=== PATIENT | female | born 1950 | race American Indian/Alaskan Native ===

== ENCOUNTER 2016-08-06 12:05 | Emergency (ER) | payer MEDICARE, MEDICAID ==
--- NOTE | 2016-08-06 12:07 | EDM.PDOC ---
ED HPI GENERAL MEDICAL PROBLEM - General Chief Complaint: Lower Extremity Injury/Pain Stated Complaint: [id number] LEG SWOLLEN CRAMPED BRUISED Time Seen by Provider: 08/06/16 12:15 Source of Information: Reports: Patient, RN, RN Notes Reviewed History Limitations: Reports: No Limitations - History of Present Illness INITIAL COMMENTS - FREE TEXT/NARRATIVE: Sudden onset of right medial and posterior lower leg pain at 4 a.m. Sunday morning August 04 when she woke on the the right lower leg had a huge bruise and was very painful. Denies injury, cough or shortness of breath. Quality: Reports: Ache Severity: Severe Improves with: Reports: None Worsens with: Reports: None Associated Symptoms: Reports: No Other Symptoms Right Leg Pain Score (Numeric/FACES): 6 - Related Data Allergies Allergy/AdvReac Type Severity Reaction Status Date / Time No Known Allergies Allergy Verified 08/06/16 12:20 Home Meds: Home Meds Aspirin [Low Dose Aspirin EC] 81 mg PO DAILY 05/25/13 [History] metFORMIN [Glucophage] 1,000 mg PO BID 05/25/13 [History] Past Medical History Other HEENT History: weasrs glasses Other Gastrointestinal History: has a abdominal hernia Endocrine/Metabolic History: Reports: Diabetes, Type II - Past Surgical History GI Surgical History: Reports: Cholecystectomy Social & Family History - Family History Family Medical History: Noncontributory - Tobacco Use Smoking Status *Q: Never Smoker Second Hand Smoke Exposure: No - Caffeine Use Caffeine Use: Reports: Coffee - Alcohol Use Days Per Week of Alcohol Use: 0 - Recreational Drug Use Recreational Drug Use: No - Living Situation & Occupation Living situation: Reports: with Family Review of Systems - Review of Systems Review Of Systems: ROS reveals no pertinent complaints other than HPI. ED EXAM, GENERAL - Physical Exam Exam: See Below Exam Limited By: No Limitations General Appearance: Alert, WD/WN, No Apparent Distress Respiratory/Chest: No Respiratory Distress Cardiovascular: Normal Peripheral Pulses, Regular Rate, Rhythm, No Edema, No Gallop, No JVD, No Murmur, No Rub Back Exam: Normal Inspection, Full Range of Motion, NT Extremities: Other (Right medial lower leg with large hematoma from just distal to the knee to the lw calf with mild swelling. Positive Sameera's right.) Neurological: Alert, Oriented, CN II-XII Intact, Normal Cognition, Normal Gait, Normal Reflexes, No Motor/Sensory Deficits Psychiatric: Normal Affect, Normal Mood Lymphatic: No Adenopathy Course - Vital Signs Last Recorded V/S: Last Vital Signs Temp 36.2 C 08/06/16 12:10 Pulse 77 08/06/16 12:10 Resp 16 08/06/16 12:10 BP 139/60 08/06/16 12:10 Pulse Ox 100 08/06/16 12:10 - Orders/Labs/Meds Orders: Active Orders 24 hr Category Date Time Status Venous Doppler Lwr Ext Rt [US] Urgent Exams 08/06/16 12:29 Taken Meds: Medications Discontinued Medications Generic Name Dose Route Start Last Admin Trade Name Freq PRN Reason Stop Dose Admin Hydrocodone Bitart/Acetaminophen 1 tab 08/06/16 12:32 08/06/16 12:41 [place] 325-10 Mg PO 08/06/16 12:33 1 tab ONETIME ONE Administration - Radiology Interpretation Free Text/Narrative:: Ultrasound extremity veins: Per rad report normal right lower extremity duplex venous ultrasound. Departure - Departure Time of Disposition: 13:42 Disposition: Home, Self-Care 01 Condition: good Clinical Impression: Ruptured varicose vein Hematoma of right lower extremity Qualifiers: Encounter type: initial encounter Qualified Code(s): S80.11XA - Contusion of right lower leg, initial encounter - Discharge Information Instructions: Hematoma, [id number] Forms: ED Department Discharge Additional Instructions: RX: Naprosyn 500mg. RX: [place] 5mg/325mg. Use heating pad to the right leg as needed. Activity as tolerated. Follow up in clinic in one week if not improving. - My Orders Last 24 Hours: My Active Orders 08/06/16 12:29 Venous Doppler Lwr Ext Rt [US] Urgent - Assessment/Plan Last 24 Hours: My Active Orders 08/06/16 12:29 Venous Doppler Lwr Ext Rt [US] Urgent
[2016-08-06] MEDS ORDERED: Acetaminophen/HYDROcodone 325-10 MG Tab PO ONE (12:32)
[2016-08-06 13:47] VITALS: BP 120/48
== END 2016-08-06 13:57 | disposition home or self-care (01) ==
LOC: EDBD 12:05 → DL.ED 12:05
DX: S80.11XA Contusion of right lower leg, initial encounter (principal); I83.90 Asymptomatic varicose veins of unspecified lower extremity; Z90.49 Acquired absence of other specified parts of digestive tract; Z79.82 Long term (current) use of aspirin; E11.9 Type 2 diabetes mellitus without complications; Z79.84 Long term (current) use of oral hypoglycemic drugs
CPT/HCPCS: 93971; 99283; A9270

== ENCOUNTER 2016-08-29 09:33 | Emergency (ER) | payer MEDICARE, MEDICAID ==
[2016-08-29 09:40] VITALS: BP 145/71
[2016-08-29] MEDS ORDERED: Dexamethasone 4 MG/ML SDV IM ONE (10:00)
[2016-08-29] MEDS ORDERED: Meclizine 12.5 MG Tab PO ONE ×2 (10:01→10:21)
[2016-08-29] MEDS ORDERED: Ondansetron 4 MG Tab.DIS PO ONE (10:02)
[2016-08-29] MEDS ORDERED: Meclizine 12.5 MG Tab ONE (10:21)
--- NOTE | 2016-08-29 10:42 | EDM.PDOC ---
Scribed by Nilsa Martinez 08/29/16 1013 for Brennon Tirado MD ED HPI GENERAL MEDICAL PROBLEM - General Chief Complaint: Headache Stated Complaint: DIZZY, HEADACHE Time Seen by Provider: 08/29/16 09:52 Source of Information: Reports: Patient, RN, RN Notes Reviewed History Limitations: Reports: No Limitations - History of Present Illness INITIAL COMMENTS - FREE TEXT/NARRATIVE: Complaining of onset of frontal headache yesterday followed by "room spin dizziness" associated with nausea. Denies fever, chills, vomiting or visual changes. Admits to allergies with runny nose x1 week. Location: Reports: Head Quality: Reports: Ache Severity: Moderate Improves with: Reports: None Worsens with: Reports: None Associated Symptoms: Reports: No Other Symptoms - Related Data Allergies Allergy/AdvReac Type Severity Reaction Status Date / Time No Known Allergies Allergy Verified 08/29/16 09:36 Home Meds: Home Meds Aspirin [Low Dose Aspirin EC] 81 mg PO DAILY 05/25/13 [History] metFORMIN [Glucophage] 1,000 mg PO BID 05/25/13 [History] Past Medical History Other HEENT History: weasrs glasses Other Gastrointestinal History: has a abdominal hernia Endocrine/Metabolic History: Reports: Diabetes, Type II - Past Surgical History GI Surgical History: Reports: Cholecystectomy Social & Family History - Family History Family Medical History: Noncontributory - Tobacco Use Smoking Status *Q: Never Smoker Second Hand Smoke Exposure: No - Caffeine Use Caffeine Use: Reports: Coffee - Alcohol Use Days Per Week of Alcohol Use: 0 - Recreational Drug Use Recreational Drug Use: No - Living Situation & Occupation Living situation: Reports: with Family ED ROS GENERAL - Review of Systems Review Of Systems: ROS reveals no pertinent complaints other than HPI. - Physical Exam Exam: See Below Exam Limited By: No Limitations General Appearance: Alert, WD/WN, No Apparent Distress Eye Exam: Bilateral Eye: Nystagmus (lateral gaze nystagmus.) Ears: Normal TMs (bilateral) Nose: Other (inflamed nasal mucosa with clear nasal mucus drainage. ) Throat/Mouth: Normal Inspection, Normal Lips, Normal Teeth, Normal Gums, Normal Oropharynx, Normal Voice, No Airway Compromise Head Exam: Atraumatic, Normocephalic Neck: Normal Inspection, Supple, Non-Tender, Full Range of Motion Respiratory/Chest: No Respiratory Distress, Lungs Clear, Normal Breath Sounds, No Accessory Muscle Use, Chest Non-Tender Cardiovascular: Normal Peripheral Pulses, Regular Rate, Rhythm, No Edema, No Gallop, No JVD, No Murmur, No Rub GI/Abdominal: Normal Bowel Sounds, Soft, Non-Tender, No Organomegaly, No Distention, No Abnormal Bruit, No Mass (Female) Exam: Deferred Rectal (Female) Exam: Deferred Neuro Exam (Abbreviated): Alert, Oriented, CN II-XII Intact, Normal Cognition, Normal Gait, Normal Reflexes, No Motor/Sensory Deficits Back Exam: Normal Inspection, Full Range of Motion, NT Extremities: Normal Inspection, Normal Range of Motion, Non-Tender, No Pedal Edema, Normal Capillary Refill Psychiatric: Normal Affect, Normal Mood Skin Exam: Warm, Dry, Intact, Normal Color, No Rash Course - Vital Signs Last Recorded V/S: Last Vital Signs Temp 36.4 C 08/29/16 09:37 Pulse 75 08/29/16 09:37 Resp 16 08/29/16 09:37 BP 145/71 H 08/29/16 09:37 Pulse Ox 100 08/29/16 09:37 - Orders/Labs/Meds Meds: Medications Discontinued Medications Generic Name Dose Route Start Last Admin Trade Name Obeyq PRN Reason Stop Dose Admin Dexamethasone 8 mg 08/29/16 10:00 08/29/16 10:07 Dexamethasone IM 08/29/16 10:01 8 mg ONETIME ONE Administration Meclizine HCl 25 mg 08/29/16 10:01 08/29/16 10:07 Antivert PO 08/29/16 10:02 25 mg ONETIME ONE Administration Meclizine HCl Confirm 08/29/16 10:21 08/29/16 10:27 Antivert Administered 08/29/16 10:22 Not Given Dose 50 mg .ROUTE .STK-MED ONE Ondansetron HCl 4 mg 08/29/16 10:02 08/29/16 10:07 Zofran Odt PO 08/29/16 10:03 4 mg ONETIME ONE Administration Departure - Departure Time of Disposition: 10:03 Disposition: Home, Self-Care 01 Condition: Good Clinical Impression: Sinus headache, Allergic rhinosinusitis, Vertigo - Discharge Information Instructions: Sinus Headache, [id number], Vertigo, [id number] Forms: ED Department Discharge Additional Instructions: RX: Meclizine 25mg. *no driving while under the influence of this medication. RX: Decadron 4 mg. Follow up in clinic in 2-3 days for recheck if not improved. I have read and agree with the documentation that has been completed regarding this visit. By signing this record, I attest that the documentation was completed in my physical presence and is an accurate record of the encounter.
== END 2016-08-29 10:23 | disposition home or self-care (01) ==
LOC: DL.ED 09:33
DX: R51 Headache (principal); J30.9 Allergic rhinitis, unspecified; R42 Dizziness and giddiness; E11.9 Type 2 diabetes mellitus without complications; Z79.82 Long term (current) use of aspirin; Z79.84 Long term (current) use of oral hypoglycemic drugs; Z90.49 Acquired absence of other specified parts of digestive tract
CPT/HCPCS: 96372; 99283; A9270; J1100

== ENCOUNTER 2017-02-18 06:34 | Emergency (ER) | payer MEDICARE, MEDICAID ==
[2017-02-18] MEDS ORDERED: Sodium Chloride 0.9% 1,000 ML IV ONE (06:45)
[2017-02-18] MEDS ORDERED: Promethazine 25 MG/ML SDV IM ONE (06:45)
[2017-02-18] MEDS ORDERED: Meclizine 12.5 MG Tab PO ONE (06:46)
--- NOTE | 2017-02-18 06:52 | EDM.PDOC ---
<Juan Tapia - Last Filed: 02/18/17 06:47> ED HPI GENERAL MEDICAL PROBLEM - General Chief Complaint: General Stated Complaint: Dizziness Time Seen by Provider: 02/18/17 06:47 Source of Information: Reports: Patient History Limitations: Reports: No Limitations - History of Present Illness INITIAL COMMENTS - FREE TEXT/NARRATIVE: woke up felt dizzy unable to get to bathroom. vomited x 3. no diarrhoea, no chest pain, but abd pain from umbilical hernia. - Related Data Allergies Allergy/AdvReac Type Severity Reaction Status Date / Time No Known Allergies Allergy Verified 02/18/17 07:01 Home Meds: Home Meds Aspirin [Low Dose Aspirin EC] 81 mg PO DAILY 05/25/13 [History] metFORMIN [Glucophage] 1,000 mg PO BID 05/25/13 [History] Meclizine HCl 25 mg PO Q8H PRN 02/18/17 [History] Simvastatin 1 tab PO DAILY 02/18/17 [History] Tylenol 1 tab PO ASDIRECTED PRN 02/18/17 [History] Past Medical History HEENT History: Reports: Impaired Vision Other HEENT History: weasrs glasses Other Gastrointestinal History: has a abdominal hernia Endocrine/Metabolic History: Reports: Diabetes, Type II - Past Surgical History GI Surgical History: Reports: Cholecystectomy Social & Family History - Family History Family Medical History: Noncontributory - Tobacco Use Smoking Status *Q: Never Smoker Second Hand Smoke Exposure: No - Caffeine Use Caffeine Use: Reports: Coffee - Alcohol Use Days Per Week of Alcohol Use: 0 - Recreational Drug Use Recreational Drug Use: No - Living Situation & Occupation Living situation: Reports: with Family ED ROS GENERAL - Review of Systems Review Of Systems: ROS reveals no pertinent complaints other than HPI. ED EXAM, DIZZINESS - Physical Exam Exam: See Below Exam Limited By: No Limitations General Appearance: Alert, WD/WN, Mild Distress, Other (dizzy) Ears: Hearing Grossly Normal Throat/Mouth: Normal Voice, No Airway Compromise Head Exam: Atraumatic Vertigo: short duration Neck: Non-Tender, Full Range of Motion Respiratory/Chest: No Respiratory Distress Cardiovascular: Regular Rate, Rhythm GI/Abdominal: Soft, Other (umbil hernia) Neurological: Alert, No Motor/Sensory Deficits, Oriented x 3, Other (gait limited to dizziness) Psychiatric: Anxious Skin Exam: Warm, Dry, Normal Color Course - Vital Signs Last Recorded V/S: Last Vital Signs Temp 36.1 C 02/18/17 06:55 Pulse 78 02/18/17 06:55 Resp 24 H 02/18/17 06:55 BP 145/58 H 02/18/17 06:55 Pulse Ox 100 02/18/17 06:55 - Orders/Labs/Meds Orders: Active Orders 24 hr Category Date Time Status EKG 12 Lead [EKG Documentation Completion] [RC] STAT Care 02/18/17 06:44 Active Sodium Chloride 0.9% [Normal Saline] 1,000 ml Med 02/18/17 06:45 Active IV .BOLUS Medication Orders Sodium Chloride (Normal Saline) 1,000 mls @ 500 mls/hr IV .BOLUS ONE Stop: 02/18/17 08:44 Last Admin: 02/18/17 07:00 Dose: 500 mls/hr Labs: Laboratory Tests 02/18/17 02/18/17 Range/Units 06:43 06:43 WBC 6.4 (5.0-10.0) 10^3/uL RBC 4.49 (4.2-5.4) 10^6/uL Hgb 13.5 (12.0-16.0) g/dL Hct 40.6 (37.0-47.0) % MCV 90.4 (80-100) fL MCH 30.1 (27.0-34.0) pg MCHC 33.3 (33.0-35.0) g/dL Plt Count 210 (150-450) 10^3/uL Neut % (Auto) 56.8 (42.2-75.2) % Lymph % (Auto) 31.4 (20.5-50.1) % [place] % (Auto) 6.4 (2-8) % Eos % (Auto) 5.1 H (1.0-3.0) % Baso % (Auto) 0.3 (0.0-1.0) % Sodium 140 (135-145) mmol/L Potassium 3.8 (3.6-5.0) mmol/L Chloride 110 (101-111) mmol/L Carbon Dioxide 20.0 L (21.0-31.0) mmol/L Anion Gap 13.8 BUN 17 (7-18) mg/dL Creatinine 0.6 (0.6-1.3) mg/dL Est Cr Clr Drug Dosing TNP Estimated GFR (MDRD) > 60 BUN/Creatinine Ratio 28.33 Glucose 206 H (74-105) mg/dL Calcium 9.3 (8.4-10.2) mg/dl Total Bilirubin 1.0 (0.2-1.0) mg/dL AST 33 (10-42) IU/L ALT 19 (10-60) IU/L Alkaline Phosphatase 59 (42-121) IU/L Troponin I < 0.02 (0.00-0.02) ng/ml Total Protein 7.7 (6.7-8.2) g/dl Albumin 4.2 (3.2-5.5) g/dl Globulin 3.5 Albumin/Globulin Ratio 1.20 Meds: Medications Generic Name Dose Route Start Last Admin Trade Name Freq PRN Reason Stop Dose Admin Sodium Chloride 1,000 mls @ 500 mls/hr 02/18/17 06:45 02/18/17 07:00 Normal Saline IV 02/18/17 08:44 500 mls/hr .BOLUS ONE Administration Discontinued Medications Generic Name Dose Route Start Last Admin Trade Name Freq PRN Reason Stop Dose Admin Meclizine HCl 12.5 mg 02/18/17 06:46 02/18/17 06:56 Antivert PO 02/18/17 06:47 12.5 mg ONETIME ONE Administration Promethazine HCl 25 mg 02/18/17 06:45 02/18/17 07:00 Phenergan IM 02/18/17 06:46 25 mg ONETIME ONE Administration Departure - Departure Disposition: Home, Self-Care 01 Clinical Impression: Vertigo - Discharge Information Instructions: Vertigo, [id number] Forms: ED Department Discharge Additional Instructions: Take your Meclizine as prescribed. Follow up in clinic if not completely improved in 2 to 3 days. Return to ER if worse at any time. <Brennon Tirado - Last Filed: 02/18/17 08:24> ED HPI GENERAL MEDICAL PROBLEM - General Source of Information: Reports: Old Records, RN, RN Notes Reviewed - History of Present Illness INITIAL COMMENTS - FREE TEXT/NARRATIVE: Pt reports waking to find that she had "room spin dizziness" with nausea and vomiting x3. She had at least one very similar episode about a year ago and was diagnosed with vertigo. Denies fever, chills, headache, visual changes, slurred speech, difficulty swallowing, facial droop, numbness, tingling, or lateralizing neuro. symptoms. Onset: Today Duration: Constant Improves with: Reports: None Worsens with: Reports: Movement Associated Symptoms: Reports: No Other Symptoms Past Medical History Neurological History: Reports: Vertigo ED EXAM, DIZZINESS - Physical Exam General Appearance: No Apparent Distress Eye Exam: Bilateral Eye: EOMI, Nystagmus (lateral gaze), PERRL Nystagmus: reproducible, reversible Ears: Normal External Exam, Normal Canal, Normal TMs Nose: Normal Inspection, Normal Mucosa, No Blood Throat/Mouth: Normal Inspection, Normal Lips, Normal Teeth, Normal Gums, Normal Oropharynx, Normal Voice, No Airway Compromise Head Exam: Atraumatic, Normocephalic Vertigo: reproducible, reversible Neck: Normal Inspection, Supple, Non-Tender, Full Range of Motion. No: Lymphadenopathy (L), Lymphadenopathy (R) Respiratory/Chest: No Respiratory Distress, Lungs Clear, Normal Breath Sounds, No Accessory Muscle Use, Chest Non-Tender Cardiovascular: Normal Peripheral Pulses, Regular Rate, Rhythm, No Edema, No Gallop, No JVD, No Murmur, No Rub GI/Abdominal: Normal Bowel Sounds, Soft, Non-Tender, No Organomegaly, No Distention, No Abnormal Bruit, No Mass Neurological: Alert, Normal Mood/Affect, Normal Dorsiflexion, CN II-XII Intact, Normal Plantar Flexion, Normal Gait, No Motor/Sensory Deficits, Oriented x 3 Back Exam: Normal Inspection Extremities: Normal Inspection Skin Exam: Warm, Dry, Intact, Normal Color, No Rash EKG INTERPRETATION EKG Date: 02/18/17 Time: 06:50 Rhythm: NSR Rate (Beats/Min): 76 [place]: Normal P-Wave: Present QRS: Normal ST-T: Normal QT: Normal Comparison: No Change EKG Interpretation Comments: No acute ischemic changes. Departure - Departure Time of Disposition: 08:22 Condition: Good
[2017-02-18 07:00] VITALS: BP 145/58
[2017-02-18 07:11] LABS: CHLORIDE,CL 110 mmol/L (101-111); SODIUM,NA 140 mmol/L (135-145)
--- NOTE | 2017-02-26 18:34 | EKG ---
02/18/2017 - EMMY GODWIN - This 12-lead EKG shows normal sinus rhythm with a ventricular rate of 76. Normal axis and intervals. No acute ST-T wave changes. [facility] /[id number]
== END 2017-02-18 08:40 | disposition home or self-care (01) ==
LOC: DL.ED 06:34
DX: R42 Dizziness and giddiness (principal); E11.9 Type 2 diabetes mellitus without complications; Z79.82 Long term (current) use of aspirin; Z79.84 Long term (current) use of oral hypoglycemic drugs; Z79.899 Other long term (current) drug therapy
CPT/HCPCS: 36415; 80053; 84484; 85025; 93005; 96360; 96372; 99284; A9270; J2550; J7030; 93010; 99283

== ENCOUNTER 2018-08-27 13:13 | Emergency (ER) | payer MEDICARE, MEDICAID ==
--- NOTE | 2018-08-27 13:19 | EDM.PDOC ---
ED HPI GENERAL MEDICAL PROBLEM - General Chief Complaint: Neurological Problem Stated Complaint: [facility] Time Seen by Provider: 08/27/18 13:19 Source of Information: Reports: Patient, EMS, Family, Old Records, RN, RN Notes Reviewed History Limitations: Reports: No Limitations - History of Present Illness INITIAL COMMENTS - FREE TEXT/NARRATIVE: Pt presents to ER with c/o waking this morning with "room spin" dizziness associated with nausea. She denies vomiting. Pt reports similar Sx in the past with vertigo. She denies headache, vomiting, fever, chills, or visual changes. Denies motor weakness. Onset: Today Duration: Intermittent Severity: Moderate Improves with: Reports: None Worsens with: Reports: Movement Associated Symptoms: Reports: No Other Symptoms - Related Data Allergies Allergy/AdvReac Type Severity Reaction Status Date / Time No Known Allergies Allergy Verified 08/27/18 13:24 Home Meds: Home Meds Aspirin [Low Dose Aspirin EC] 81 mg PO DAILY 05/25/13 [History] metFORMIN [Glucophage] 1,000 mg PO BID 05/25/13 [History] Meclizine HCl 25 mg PO Q8H PRN 02/18/17 [History] Acetaminophen 325 mg PO ASDIRECTED PRN 08/27/18 [History] Cyanocobalamin (Vitamin B-12) [Vitamin B-12] 1 ml IM Q30D 08/27/18 [History] Glimepiride 1 mg PO BID 08/27/18 [History] Simvastatin 20 mg PO DAILY 08/27/18 [History] sitaGLIPtin Phos/Metformin HCl [Janumet 50-1,000 MG] 1 tab PO DAILY 08/27/18 [ History] Past Medical History HEENT History: Reports: Impaired Vision Other HEENT History: weasrs glasses Other Gastrointestinal History: has a abdominal hernia Neurological History: Reports: Vertigo Endocrine/Metabolic History: Reports: Diabetes, Type II - Past Surgical History GI Surgical History: Reports: Cholecystectomy Female Surgical History: Reports: Section Social & Family History - Family History Family Medical History: Noncontributory - Caffeine Use Caffeine Use: Reports: Coffee - Living Situation & Occupation Living situation: Reports: with Family ED ROS GENERAL - Review of Systems Review Of Systems: ROS reveals no pertinent complaints other than HPI. ED EXAM, NEURO - Physical Exam Exam: See Below Exam Limited By: No Limitations General Appearance: Alert, WD/WN, No Apparent Distress Eye Exam: Bilateral Eye: Nystagmus (right lateral gaze) Ears: Normal External Exam, Normal Canal, Hearing Grossly Normal, Normal TMs Nose: Normal Inspection, Normal Mucosa, No Blood Throat/Mouth: Normal Inspection, Normal Lips, Normal Teeth, Normal Gums, Normal Oropharynx, Normal Voice, No Airway Compromise Head Exam: Atraumatic, Normocephalic Neck: Normal Inspection, Supple, Non-Tender, Full Range of Motion Respiratory/Chest: No Respiratory Distress, Lungs Clear, Normal Breath Sounds, No Accessory Muscle Use, Chest Non-Tender Cardiovascular: Normal Peripheral Pulses, Regular Rate, Rhythm, No Edema, No Gallop, No JVD, No Murmur, No Rub GI/Abdominal: Normal Bowel Sounds, Soft, Non-Tender, No Organomegaly, No Distention, No Abnormal Bruit, No Mass Neurological: Alert, Normal Mood/Affect, Normal Dorsiflexion, CN II-XII Intact, Normal Plantar Flexion, Normal Gait, Normal Reflexes, No Motor/Sensory Deficits , Oriented x 3 Back Exam: Normal Inspection, Full Range of Motion, NT Extremities: Normal Inspection, Normal Range of Motion, Non-Tender, No Pedal Edema, Normal Capillary Refill Psychiatric: Normal Affect, Normal Mood Skin Exam: Warm, Dry, Intact, Normal Color, No Rash Course - Vital Signs Last Recorded V/S: Last Vital Signs Temp 98.9 F 08/27/18 13:14 Pulse 72 08/27/18 13:14 Resp 20 08/27/18 13:14 BP 161/73 H 08/27/18 13:14 Pulse Ox 94 L 08/27/18 13:14 - Orders/Labs/Meds Orders: Active Orders 24 hr Category Date Time Status Peripheral IV Care [RC] . DIRECTED Care 08/27/18 13:58 Active Peripheral IV Insertion Adult [OM.PC] Stat Oth 08/27/18 13:58 Ordered Labs: Laboratory Tests 08/27/18 08/27/18 08/27/18 Range/Units 13:19 14:11 14:11 WBC 7.7 (5.0-10.0) 10^3/uL RBC 4.63 (4.2-5.4) 10^6/uL Hgb 13.7 (12.0-16.0) g/dL Hct 41.6 (37.0-47.0) % MCV 89.8 (80-100) fL MCH 29.6 (27.0-34.0) pg MCHC 32.9 L (33.0-35.0) g/dL Plt Count 214 (150-450) 10^3/uL Neut % (Auto) 69.4 (42.2-75.2) % Lymph % (Auto) 20.5 (20.5-50.1) % [place] % (Auto) 7.1 (2-8) % Eos % (Auto) 2.6 (1.0-3.0) % Baso % (Auto) 0.4 (0.0-1.0) % Sodium 139 (135-145) mmol/L Potassium 3.9 (3.6-5.0) mmol/L Chloride 110 (101-111) mmol/L Carbon Dioxide 20.0 L (21.0-31.0) mmol/L Anion Gap 12.9 BUN 12 (7-18) mg/dL Creatinine 0.4 L (0.6-1.3) mg/dL Est Cr Clr Drug Dosing TNP Estimated GFR (MDRD) > 60 BUN/Creatinine Ratio 30.00 Glucose 90 (74-105) mg/dL POC Glucose 101 (83-110) mg/dl Calcium 9.1 (8.4-10.2) mg/dl Magnesium 1.8 (1.8-2.5) mg/dL Total Bilirubin 1.0 (0.2-1.0) mg/dL AST 21 (10-42) IU/L ALT 19 (10-60) IU/L Alkaline Phosphatase 60 (42-121) IU/L Total Protein 7.3 (6.7-8.2) g/dl Albumin 4.1 (3.2-5.5) g/dl Globulin 3.2 Albumin/Globulin Ratio 1.28 Meds: Medications Discontinued Medications Generic Name Dose Route Start Last Admin Trade Name Obeyq PRN Reason Stop Dose Admin Dexamethasone 4 mg 08/27/18 14:30 08/27/18 14:33 Dexamethasone IVPUSH 08/27/18 14:31 4 mg ONETIME ONE Administration Diazepam 2.5 mg 08/27/18 14:10 08/27/18 14:37 Valium IVPUSH 08/27/18 14:11 2.5 mg ONETIME ONE Administration Sodium Chloride 1,000 mls @ 999 mls/hr 08/27/18 14:10 08/27/18 14:30 Normal Saline IV 08/27/18 15:10 999 mls/hr .BOLUS ONE Administration Meclizine HCl 25 mg 08/27/18 14:10 08/27/18 14:31 Antivert PO 08/27/18 14:11 25 mg ONETIME ONE Administration Sodium Chloride 10 ml 08/27/18 13:58 08/27/18 14:25 Saline Flush FLUSH 10 ml ASDIRECTED PRN Administration Keep Vein Open Departure - Departure Time of Disposition: 15:36 Disposition: Home, Self-Care 01 Condition: Good Clinical Impression: Vertigo - Discharge Information *PRESCRIPTION DRUG MONITORING PROGRAM REVIEWED*: No *COPY OF PRESCRIPTION DRUG MONITORING REPORT IN PATIENT PAT: No Instructions: Vertigo, [id number] Referrals: Antony Franco MD [Primary Care Provider] - Forms: ED Department Discharge Additional Instructions: Rx: Meclizine 25mg Drink plenty of water. Follow up in clinic next week if not improved. - My Orders Last 24 Hours: My Active Orders 08/27/18 13:58 Peripheral IV Care [RC] . DIRECTED Peripheral IV Insertion Adult [OM.PC] Stat - Assessment/Plan Last 24 Hours: My Active Orders 08/27/18 13:58 Peripheral IV Care [RC] . DIRECTED Peripheral IV Insertion Adult [OM.PC] Stat
[2018-08-27] MEDS ORDERED: Sodium Chloride 0.9% 10 ML Syringe FLUSH PRN (13:58)
[2018-08-27] MEDS ORDERED: Sodium Chloride 0.9% 1,000 ML IV ONE (14:10)
[2018-08-27] MEDS ORDERED: Meclizine 12.5 MG Tab PO ONE (14:10)
[2018-08-27] MEDS ORDERED: diazePAM 5 MG/ML MDV IVPUSH ONE (14:10)
[2018-08-27] MEDS ORDERED: Dexamethasone 10 MG/ML SDV IVPUSH ONE (14:10)
[2018-08-27] MEDS ORDERED: Dexamethasone 4 MG/ML SDV IVPUSH ONE (14:30)
[2018-08-27 14:37] LABS: ANION GAP 12.9; CHLORIDE,CL 110 mmol/L (101-111); SODIUM,NA 139 mmol/L (135-145)
[2018-08-27 14:49] VITALS: BP 161/73
== END 2018-08-27 15:55 | disposition home or self-care (01) ==
LOC: DL.ED 13:13
DX: R42 Dizziness and giddiness (principal); E11.9 Type 2 diabetes mellitus without complications; Z79.899 Other long term (current) drug therapy; Z79.82 Long term (current) use of aspirin; Z79.84 Long term (current) use of oral hypoglycemic drugs
CPT/HCPCS: 36415; 80053; 82962; 83735; 85025; 96361; 96374; 96375; 99284; A9270; J1100; J3360; J7030

== ENCOUNTER 2019-07-31 12:01 | Emergency (ER) | payer MEDICARE, MEDICAID ==
[2019-07-31 12:10] VITALS: BP 158/78; PULSE 78
--- NOTE | 2019-07-31 12:25 | EDM.PDOC ---
ED HPI GENERAL MEDICAL PROBLEM - General Chief Complaint: Upper Extremity Injury/Pain Stated Complaint: AMBULANCE Time Seen by Provider: 07/31/19 12:25 Source of Information: Reports: Patient, Old Records, RN, RN Notes Reviewed History Limitations: Reports: No Limitations - History of Present Illness INITIAL COMMENTS - FREE TEXT/NARRATIVE: Pt arrives from home by [facility] with c/o right wrist pain sustained from a ground level fall just prior to arrival. Pt states she tripped and fell. She denies dizziness or lightheadedness, chest pain, or any other symptoms preceding the fall. Pt also has a bruise on her lip and scraped her left middle finger. Tetanus vaccine about 2 yrs ago per pt. Onset: Today, Sudden Duration: Constant Location: Reports: Upper Extremity, Right Quality: Reports: Ache Severity: Moderate Improves with: Reports: Immobilization Worsens with: Reports: Movement Context: Reports: Other (Ground level mechanical fall.) Associated Symptoms: Reports: No Other Symptoms Right Wrist Pain Score (Numeric/FACES): 10 - Related Data Allergies Allergy/AdvReac Type Severity Reaction Status Date / Time No Known Allergies Allergy Verified 07/31/19 12:10 Home Meds: Home Meds Aspirin [Low Dose Aspirin EC] 81 mg PO DAILY 05/25/13 [History] metFORMIN [Glucophage] 1,000 mg PO BID 05/25/13 [History] Meclizine HCl 25 mg PO Q8H PRN 02/18/17 [History] Acetaminophen 325 mg PO ASDIRECTED PRN 08/27/18 [History] Cyanocobalamin (Vitamin B-12) [Vitamin B-12] 1 ml IM Q30D 08/27/18 [History] Simvastatin 20 mg PO DAILY 08/27/18 [History] sitaGLIPtin Phos/Metformin HCl [Janumet 50-1,000 MG] 1 tab PO DAILY 08/27/18 [ History] Past Medical History HEENT History: Reports: Impaired Vision Other HEENT History: weasrs glasses Cardiovascular History: Reports: High Cholesterol Respiratory History: Reports: None Gastrointestinal History: Reports: Cholelithiasis Other Gastrointestinal History: has a abdominal hernia Genitourinary History: Reports: None 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 Musculoskeletal History: Reports: Arthritis Neurological History: Reports: Vertigo Psychiatric History: Reports: None Endocrine/Metabolic History: Reports: Diabetes, Type II Hematologic History: Reports: B12 Deficiency Immunologic History: Reports: None Oncologic (Cancer) History: Reports: None Dermatologic History: Reports: None - Infectious Disease History Infectious Disease History: Reports: Measles - Past Surgical History Head Surgeries/Procedures: Reports: None GI Surgical History: Reports: Cholecystectomy Female Surgical History: Reports: Section Social & Family History - Family History Family Medical History: Noncontributory - Tobacco Use Smoking Status *Q: Never Smoker Second Hand Smoke Exposure: No - Caffeine Use Caffeine Use: Reports: None - Recreational Drug Use Recreational Drug Use: No - Living Situation & Occupation Living situation: Reports: with Family Review of Systems - Review of Systems Review Of Systems: Comprehensive ROS is negative, except as noted in HPI. ED EXAM, GENERAL - Physical Exam Exam: See Below Exam Limited By: No Limitations General Appearance: Alert, WD/WN, No Apparent Distress Eye Exam: Bilateral Eye: EOMI, Normal Inspection, PERRL Ears: Normal External Exam Nose: Normal Inspection, No Blood Throat/Mouth: Other (contusion to lip with abrasion) Head: Normocephalic Neck: Normal Inspection, Supple, Non-Tender, Full Range of Motion Respiratory/Chest: No Respiratory Distress, Lungs Clear, Normal Breath Sounds, No Accessory Muscle Use, Chest Non-Tender Cardiovascular: Normal Peripheral Pulses, Regular Rate, Rhythm Back Exam: Normal Inspection Extremities: Normal Capillary Refill Neurological: Alert, Oriented, CN II-XII Intact, Normal Cognition, No Motor/ Sensory Deficits Psychiatric: Normal Affect, Normal Mood Skin Exam: Warm, Dry ED TRAUMA EXTREMITY PROCEDURES - Splinting Right Upper Extremity Splint Site: Rt wrist Pre-Procedure NV Status: Normal Post-Procedure NV Status: Normal Splint Material: Fiberglass Splint Design: Volar Applied & Form Fitted By: Nurse Provider Post-Splint Application NV Check: NV Status Normal, Good Position Complications: No Course - Vital Signs Last Recorded V/S: Last Vital Signs Temp 97.6 F 07/31/19 12:06 Pulse 78 07/31/19 12:06 Resp 16 07/31/19 12:06 BP 158/78 H 07/31/19 12:06 Pulse Ox 99 07/31/19 12:06 - Orders/Labs/Meds Meds: Medications Discontinued Medications Generic Name Dose Route Start Last Admin Trade Name Freq PRN Reason Stop Dose Admin Hydrocodone Bitart/Acetaminophen 1 tab 07/31/19 12:27 07/31/19 12:35 [place] 325-10 Mg PO 07/31/19 12:28 1 tab ONETIME ONE Administration Ondansetron HCl 4 mg 07/31/19 12:27 07/31/19 12:35 Zofran Odt PO 07/31/19 12:28 4 mg ONETIME ONE Administration - Radiology Interpretation Free Text/Narrative:: XR Right Wrist: acute fracture Rt wrist, see Rad. report. Departure - Departure Time of Disposition: 13:14 Disposition: Home, Self-Care 01 Condition: Good Clinical Impression: Abrasion of lip, initial encounter Colles' fracture of right radius Qualifiers: Encounter type: initial encounter Fracture type: closed Qualified Code(s): S52.531A - Colles' fracture of right radius, initial encounter for closed fracture Fall at home Qualifiers: Encounter type: initial encounter Qualified Code(s): W19.XXXA - Unspecified fall, initial encounter; Y92.009 - Unspecified place in unspecified non- institutional (private) residence as the place of occurrence of the external cause Abrasion of left middle finger Qualifiers: Encounter type: initial encounter Qualified Code(s): S60.413A - Abrasion of left middle finger, initial encounter - Discharge Information *PRESCRIPTION DRUG MONITORING PROGRAM REVIEWED*: Not Applicable *COPY OF PRESCRIPTION DRUG MONITORING REPORT IN PATIENT PAT: Not Applicable Instructions: Colles Fracture Forms: ED Department Discharge Additional Instructions: Rx: [place] 5mg/325mg Call [phone] today to schedule an appointment with [facility] with Dr. Devries in [place] on Sunday, August 03. *Do not have anything to eat or drink after midnight on the day of the appointment. Sepsis Event Note - Evaluation Sepsis Screening Result: No Definite Risk - Focused Exam Vital Signs: Vital Signs Temp Pulse Resp BP Pulse Ox 07/31/19 12:06 97.6 F 78 16 158/78 H 99 Date Exam was Performed: 07/31/19 Time Exam was Performed: 13:26
[2019-07-31] MEDS ORDERED: Ondansetron 4 MG Tab.DIS PO ONE (12:27)
[2019-07-31] MEDS ORDERED: Acetaminophen/HYDROcodone 325-10 MG Tab PO ONE (12:27)
--- NOTE | 2019-07-31 13:17 | CR ---
EXAMINATION: Wrist Comp Min 3V Rt SEX: Female AGE: 69 years CLINICAL HISTORY: 69-year-old female with right wrist pain and deformity after a fall. INTERPRETATION: Abnormal. 1. Pronounced soft tissue swelling. 2. Comminuted, mildly impacted, anatomically aligned distal RADIAL FRACTURE that extends into the radiocarpal wrist joint. 3. Associated nondisplaced fracture base of the ulnar styloid. 4. There is mild osteopenia consistent with age and gender. 5. Chronic reactive arthritic changes first carpometacarpal and first metacarpophalangeal joint. 6. No sign of metacarpal fracture or metacarpal phalangeal joint dislocation. 7. No foreign bodies. CONCLUSION: Acute right wrist fracture. Underlying signs of osteoarthritis.
== END 2019-07-31 13:41 | disposition home or self-care (01) ==
LOC: DL.ED 12:01
DX: S52.531A Colles' fracture of right radius, initial encounter for closed fracture (principal); S52.614A Nondisplaced fracture of right ulna styloid process, initial encounter for closed fracture; S60.413A Abrasion of left middle finger, initial encounter; S00.511A Abrasion of lip, initial encounter; E11.9 Type 2 diabetes mellitus without complications; E78.00 Pure hypercholesterolemia, unspecified; Z79.899 Other long term (current) drug therapy; Z79.84 Long term (current) use of oral hypoglycemic drugs; Z79.82 Long term (current) use of aspirin; W01.0XXA Fall on same level from slipping, tripping and stumbling without subsequent striking against object, initial encounter; Y92.009 Unspecified place in unspecified non-institutional (private) residence as the place of occurrence of the external cause
CPT/HCPCS: 29125; 73110; 99284; A9270

== ENCOUNTER 2020-05-04 07:43 | Emergency (ER) | payer MEDICARE, MEDICAID ==
[2020-05-04 07:56] VITALS: BP 159/73; PULSE 76
--- NOTE | 2020-05-04 08:00 | EDM.PDOC ---
ED HPI GENERAL MEDICAL PROBLEM - General Chief Complaint: General Stated Complaint: AMBULANCE Time Seen by Provider: 05/04/20 07:59 Source of Information: Reports: Patient, Old Records, RN, RN Notes Reviewed History Limitations: Reports: No Limitations - History of Present Illness INITIAL COMMENTS - FREE TEXT/NARRATIVE: Pt presents to ER with c/o waking this morning to find that she had "room spin" dizziness. Pt states she has had several episodes of vertigo in the past which resolved with medication and rest. Denies headache, vomiting, visual changes, congestion, or ear pain. Symptoms are worse with movement of the head and better if she remains still with her eyes closed. Onset: Today Duration: Intermittent Location: Reports: Generalized Severity: Moderate Associated Symptoms: Reports: No Other Symptoms Headache Pain Score (Numeric/FACES): 6 - Related Data Allergies Allergy/AdvReac Type Severity Reaction Status Date / Time No Known Allergies Allergy Verified 05/04/20 07:57 Home Meds: Home Meds Aspirin [Low Dose Aspirin EC] 81 mg PO DAILY 05/25/13 [History] metFORMIN [Glucophage] 1,000 mg PO BID 05/25/13 [History] Meclizine HCl 25 mg PO Q8H PRN 02/18/17 [History] Acetaminophen 325 mg PO ASDIRECTED PRN 08/27/18 [History] Cyanocobalamin (Vitamin B-12) [Vitamin B-12] 1 ml IM Q30D 08/27/18 [History] Simvastatin 5 mg PO BEDTIME 08/27/18 [History] sitaGLIPtin Phos/Metformin HCl [Janumet 50-1,000 MG] 50 mg PO DAILY 08/27/18 [History] Glimepiride 4 mg PO BIDMEALS 05/04/20 [History] Past Medical History HEENT History: Reports: Impaired Vision Other HEENT History: weasrs glasses Cardiovascular History: Reports: None Respiratory History: Reports: None Gastrointestinal History: Reports: Cholelithiasis Other Gastrointestinal History: has a abdominal hernia Genitourinary History: Reports: None 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 Musculoskeletal History: Reports: Arthritis Neurological History: Reports: Vertigo Psychiatric History: Reports: None Endocrine/Metabolic History: Reports: Diabetes, Type II Hematologic History: Reports: B12 Deficiency Immunologic History: Reports: None Oncologic (Cancer) History: Reports: None Dermatologic History: Reports: None - Infectious Disease History Infectious Disease History: Reports: Measles - Past Surgical History Head Surgeries/Procedures: Reports: None GI Surgical History: Reports: Cholecystectomy Female Surgical History: Reports: Section Social & Family History - Family History Family Medical History: No Pertinent Family History - Caffeine Use Caffeine Use: Reports: Coffee - Living Situation & Occupation Living situation: Reports: with Family ED ROS GENERAL - Review of Systems Review Of Systems: Comprehensive ROS is negative, except as noted in HPI. ED EXAM, GENERAL - Physical Exam Exam: See Below Exam Limited By: No Limitations General Appearance: Alert, WD/WN, No Apparent Distress Eye Exam: Bilateral Eye: EOMI, Nystagmus (Right lateral gaze), PERRL Ears: Normal External Exam, Normal Canal, Hearing Grossly Normal, Normal TMs Nose: Normal Inspection, Normal Mucosa, No Blood Throat/Mouth: Normal Inspection, Normal Lips, Normal Teeth, Normal Gums, Normal Oropharynx, Normal Voice, No Airway Compromise Head: Atraumatic, Normocephalic Neck: Normal Inspection, Supple, Non-Tender, Full Range of Motion. No: Carotid Bruit Respiratory/Chest: No Respiratory Distress, Lungs Clear, Normal Breath Sounds, No Accessory Muscle Use, Chest Non-Tender Cardiovascular: Normal Peripheral Pulses, Regular Rate, Rhythm, No Edema, Other (Not orthostatic) GI/Abdominal: Normal Bowel Sounds, Soft, Non-Tender Back Exam: Normal Inspection Extremities: Normal Inspection Neurological: Alert, Oriented, CN II-XII Intact, Normal Cognition, Normal Gait, No Motor/Sensory Deficits, Other (Reproducible dizziness with head position change) Psychiatric: Normal Affect, Normal Mood Skin Exam: Warm, Dry, Intact, Normal Color, No Rash #1 Interpretation EKG Date: 05/04/20 Time: 07:52 Rhythm: Other (SR) Rate (Beats/Min): 79 [place]: LAD-Left [place] Deviation P-Wave: Present QRS: Other (Abnormal R-wave progression, inferior Q waves (old)) ST-T: Normal QT: Normal Comparison: No Change Course - Vital Signs Last Recorded V/S: Last Vital Signs Temp 97.7 F 05/04/20 07:54 Pulse 76 05/04/20 07:54 Resp 18 05/04/20 07:54 BP 159/73 H 05/04/20 07:54 Pulse Ox 98 05/04/20 07:54 - Orders/Labs/Meds Labs: Laboratory Tests 05/04/20 05/04/20 05/04/20 Range/Units 08:18 08:18 08:25 WBC 7.7 (5.0-10.0) 10^3/uL RBC 4.34 (4.2-5.4) 10^6/uL Hgb 12.8 (12.0-16.0) g/dL Hct 39.5 (37.0-47.0) % MCV 91.0 (80-100) fL MCH 29.5 (27.0-34.0) pg MCHC 32.4 L (33.0-35.0) g/dL Plt Count 216 (150-450) 10^3/uL Neut % (Auto) 78.1 H (42.2-75.2) % Lymph % (Auto) 13.4 L (20.5-50.1) % [place] % (Auto) 5.5 (2-8) % Eos % (Auto) 2.5 (1.0-3.0) % Baso % (Auto) 0.5 (0.0-1.0) % Sodium 144 (136-145) mmol/L Potassium 3.9 (3.5-5.1) mmol/L Chloride 106 (98-107) mmol/L Carbon Dioxide 25 (21-32) mmol/L Anion Gap 16.9 H (7-13) mEq/L BUN 10 (7-18) mg/dL Creatinine 0.69 (0.55-1.02) mg/dL Est Cr Clr Drug Dosing 63.64 mL/min Estimated GFR (MDRD) > 60 BUN/Creatinine Ratio 14.5 (No establ ref range) Glucose 145 H (74-99) mg/dL Calcium 8.6 (8.5-10.1) mg/dL Total Bilirubin 0.6 (0.2-1.0) mg/dL AST 20 (15-37) U/L ALT 34 (14-59) U/L Alkaline Phosphatase 69 (46-116) U/L C-Reactive Protein 3.2 H (0.0-0.9) mg/dL Total Protein 7.6 (6.4-8.2) g/dL Albumin 3.5 (3.4-5.0) g/dL Globulin 4.1 Albumin/Globulin Ratio 0.9 Urine Color Yellow (YELLOW) Urine Appearance Clear (CLEAR) Urine pH 6.0 (5.0-9.0) Ur Specific [place] 1.020 (1.005-1.030) Urine Protein Negative (NEGATIVE) Urine Glucose (UA) Negative (NEGATIVE) Urine Ketones Negative (NEGATIVE) Urine Occult Blood Negative (NEGATIVE) Urine Nitrite Negative (NEGATIVE) Urine Bilirubin Negative (NEGATIVE) Urine Urobilinogen 0.2 (0.2-1.0) mg/dL Ur Leukocyte Esterase Negative (NEGATIVE) Departure - Departure Time of Disposition: 09:36 Disposition: Home, Self-Care 01 Condition: Good Clinical Impression: Vertigo, Chronic pain of right lower extremity - Discharge Information *PRESCRIPTION DRUG MONITORING PROGRAM REVIEWED*: Not Applicable *COPY OF PRESCRIPTION DRUG MONITORING REPORT IN PATIENT PAT: Not Applicable Instructions: Vertigo, [id number] Forms: ED Department Discharge Additional Instructions: Rx: Meclizine 25mg Rx: Lidocaine Ointment 5% Follow up in clinic in 3 to 4 days if not improving. Sepsis Event Note (ED) - Evaluation Sepsis Screening Result: No Definite Risk - Focused Exam Vital Signs: Vital Signs Temp Pulse Resp BP Pulse Ox 05/04/20 07:54 97.7 F 76 18 159/73 H 98
[2020-05-04] MEDS ORDERED: Sodium Chloride 0.9% 1,000 ML IV ONE (08:11)
[2020-05-04] MEDS ORDERED: Meclizine 12.5 MG Tab PO ONE (08:11)
[2020-05-04] MEDS ORDERED: Dexamethasone 4 MG/ML SDV IVPUSH ONE (08:12)
[2020-05-04 08:43] LABS: ANION GAP 16.9 mEq/L (7-13); CHLORIDE,CL 106 mmol/L (98-107); SODIUM,NA 144 mmol/L (136-145)
== END 2020-05-04 09:44 | disposition home or self-care (01) ==
LOC: DL.ED 07:43
DX: R42 Dizziness and giddiness (principal); G89.29 Other chronic pain; M79.661 Pain in right lower leg; E11.9 Type 2 diabetes mellitus without complications; M19.90 Unspecified osteoarthritis, unspecified site; Z79.82 Long term (current) use of aspirin; Z79.84 Long term (current) use of oral hypoglycemic drugs
CPT/HCPCS: 36415; 80053; 81003; 85025; 86140; 93010; 99283; 99284-25

== ENCOUNTER 2020-08-18 21:50 | Emergency (ER) | payer MEDICARE, MEDICAID ==
[2020-08-18] MEDS ORDERED: Oxymetazoline 0.05% Nasal Spray 30 ML Bottle NAS ONE (22:02)
[2020-08-18 22:26] VITALS: BP 148/98; PULSE 109
[2020-08-18 22:48] LABS: ANION GAP 15.5 mEq/L (7-13); CHLORIDE,CL 107 mmol/L (98-107); SODIUM,NA 143 mmol/L (136-145)
--- NOTE | 2020-08-18 23:15 | EDM.PDOC ---
ED HPI GENERAL MEDICAL PROBLEM - General Chief Complaint: ENT Problem Stated Complaint: AMBULANCE Time Seen by Provider: 08/18/20 22:00 Source of Information: Reports: Patient History Limitations: Reports: No Limitations - History of Present Illness INITIAL COMMENTS - FREE TEXT/NARRATIVE: Nose bleed since 9pm, tried some pressure wasn't helping. bleeding both side of nose scant trickle on dressing on arrival. No prior hx. - Related Data Allergies Allergy/AdvReac Type Severity Reaction Status Date / Time No Known Allergies Allergy Verified 05/04/20 07:57 Home Meds: Home Meds Aspirin [Low Dose Aspirin EC] 81 mg PO DAILY 05/25/13 [History] metFORMIN [Glucophage] 1,000 mg PO BID 05/25/13 [History] Meclizine HCl 25 mg PO Q8H PRN 02/18/17 [History] Acetaminophen 325 mg PO ASDIRECTED PRN 08/27/18 [History] Cyanocobalamin (Vitamin B-12) [Vitamin B-12] 1 ml IM Q30D 08/27/18 [History] Simvastatin 5 mg PO BEDTIME 08/27/18 [History] sitaGLIPtin Phos/Metformin HCl [Janumet 50-1,000 MG] 50 mg PO DAILY 08/27/18 [History] Glimepiride 4 mg PO BIDMEALS 05/04/20 [History] Past Medical History HEENT History: Reports: Impaired Vision Other HEENT History: wears glasses Cardiovascular History: Reports: Hypertension Respiratory History: Reports: None Gastrointestinal History: Reports: Cholelithiasis Other Gastrointestinal History: has abdominal hernia Genitourinary History: Reports: None 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 Musculoskeletal History: Reports: Arthritis Neurological History: Reports: Vertigo Psychiatric History: Reports: None Endocrine/Metabolic History: Reports: Diabetes, Type II Hematologic History: Reports: B12 Deficiency, Other (See Below) Other Hematologic History: Epistaxis Immunologic History: Reports: None Oncologic (Cancer) History: Reports: None Dermatologic History: Reports: None - Infectious Disease History Infectious Disease History: Reports: Measles - Past Surgical History Head Surgeries/Procedures: Reports: None HEENT Surgical History: Reports: None Cardiovascular Surgical History: Reports: None GI Surgical History: Reports: Cholecystectomy Female Surgical History: Reports: Section Social & Family History - Family History Family Medical History: No Pertinent Family History - Tobacco Use Tobacco Use Status *Q: Never Tobacco User - Caffeine Use Caffeine Use: Reports: None - Recreational Drug Use Recreational Drug Use: No - Living Situation & Occupation Living situation: Reports: with Family ED ROS ENT - Review of Systems Review Of Systems: Comprehensive ROS is negative, except as noted in HPI. ED EXAM, ENT - Physical Exam Exam: See Below Exam Limited By: No Limitations General Appearance: Alert, No Apparent Distress Eye Exam: Bilateral Eye: EOMI Ears: Normal External Exam Nose: Dried Blood (right anterior). No: Active Bleeding Mouth/Throat: Normal Inspection Head: Atraumatic, Normocephalic Neck: Normal Inspection Respiratory/Chest: No Respiratory Distress, Lungs Clear GI/Abdominal: Normal Bowel Sounds, Soft, Non-Tender Back: Full Range of Motion Extremities: Normal Inspection, Normal Range of Motion Neurological: Alert, Oriented Psychiatric: Normal Affect, Normal Mood Skin: Warm, Dry, Intact Course - Vital Signs Last Recorded V/S: Last Vital Signs Temp 98.3 F 08/18/20 22:02 Pulse 109 H 08/18/20 22:02 Resp 18 08/18/20 22:02 BP 148/98 H 08/18/20 22:02 Pulse Ox 94 L 08/18/20 22:02 - Orders/Labs/Meds Labs: Laboratory Tests 08/18/20 08/18/20 08/18/20 Range/Units 22:23 22:23 22:23 WBC 6.3 (5.0-10.0) 10^3/uL RBC 4.31 (4.2-5.4) 10^6/uL Hgb 12.8 (12.0-16.0) g/dL Hct 39.7 (37.0-47.0) % MCV 92.1 (80-100) fL MCH 29.7 (27.0-34.0) pg MCHC 32.2 L (33.0-35.0) g/dL Plt Count 222 (150-450) 10^3/uL Neut % (Auto) 61.4 (42.2-75.2) % Lymph % (Auto) 24.7 (20.5-50.1) % [place] % (Auto) 8.0 (2-8) % Eos % (Auto) 5.4 H (1.0-3.0) % Baso % (Auto) 0.5 (0.0-1.0) % PT 10.2 (9.0-12.0) SEC INR 1.0 (0.9-1.2) Sodium 143 (136-145) mmol/L Potassium 3.5 (3.5-5.1) mmol/L Chloride 107 (98-107) mmol/L Carbon Dioxide 24 (21-32) mmol/L Anion Gap 15.5 H (7-13) mEq/L BUN 21 H (7-18) mg/dL Creatinine 0.86 (0.55-1.02) mg/dL Est Cr Clr Drug Dosing 51.06 mL/min Estimated GFR (MDRD) > 60 BUN/Creatinine Ratio 24.4 (No establ ref range) Glucose 227 H (70-99) mg/dL Calcium 9.1 (8.5-10.1) mg/dL Total Bilirubin 0.6 (0.2-1.0) mg/dL AST 20 (15-37) U/L ALT 41 (14-59) U/L Alkaline Phosphatase 85 (46-116) U/L Total Protein 7.5 (6.4-8.2) g/dL Albumin 3.5 (3.4-5.0) g/dL Globulin 4.0 Albumin/Globulin Ratio 0.9 Meds: Medications Discontinued Medications Generic Name Dose Route Start Last Admin Trade Name Freq PRN Reason Stop Dose Admin Oxymetazoline HCl 2 ml 08/18/20 22:02 08/18/20 22:13 Oxymetazoline 0.05% Nasal [place] 30 Ml Bottle VALENTIN 08/18/20 22:03 2 ml ONETIME ONE Administration Departure - Departure Time of Disposition: 23:13 Disposition: Home, Self-Care 01 Condition: Good Clinical Impression: Epistaxis - Discharge Information *PRESCRIPTION DRUG MONITORING PROGRAM REVIEWED*: No *COPY OF PRESCRIPTION DRUG MONITORING REPORT IN PATIENT PAT: No Instructions: Nosebleed, [id number] Referrals: Claire Quintero NP [Primary Care Provider] - Forms: ED Department Discharge Additional Instructions: humidification sleep tonight HOB slightly elevated with extra pillow recheck if recurrent bleeding and not stopped with 5 minutes of pressure Sepsis Event Note (ED) - Evaluation Sepsis Screening Result: No Definite Risk - Focused Exam Vital Signs: Vital Signs Temp Pulse Resp BP Pulse Ox 08/18/20 22:02 98.3 F 109 H 18 148/98 H 94 L
== END 2020-08-18 23:27 | disposition home or self-care (01) ==
LOC: DL.ED 21:50
DX: R04.0 Epistaxis (principal); I10 Essential (primary) hypertension; E11.9 Type 2 diabetes mellitus without complications; Z79.82 Long term (current) use of aspirin; Z79.899 Other long term (current) drug therapy
CPT/HCPCS: 36415; 80053; 85025; 85610; 99283; A9270

== ENCOUNTER 2021-03-17 15:46 | Emergency (ER) | payer MEDICARE, MEDICAID ==
[2021-03-17 16:06] VITALS: BP 149/70; PULSE 81
[2021-03-17 18:02] LABS: ANION GAP 15.8 mEq/L (7-13); CHLORIDE,CL 104 mmol/L (98-107); SODIUM,NA 142 mmol/L (136-145)
[2021-03-17] MEDS ORDERED: Iopamidol 612 MG/ML 100 ML Bottle IVPUSH ONE (18:07)
[2021-03-17] MEDS ORDERED: Acetaminophen/HYDROcodone 325-5 MG Tab PO ONE (19:20)
== END 2021-03-17 19:33 | disposition home or self-care (01) ==
LOC: DL.ED 15:46
DX: K42.9 Umbilical hernia without obstruction or gangrene (principal); I10 Essential (primary) hypertension; E11.9 Type 2 diabetes mellitus without complications; M19.90 Unspecified osteoarthritis, unspecified site; Z79.82 Long term (current) use of aspirin; Z79.84 Long term (current) use of oral hypoglycemic drugs; Z79.899 Other long term (current) drug therapy
CPT/HCPCS: 36415; 74177; 80053; 82947; 85025; 99284-25

== ENCOUNTER 2021-06-25 15:16 | Emergency (ER) | payer MEDICARE, MEDICAID ==
[2021-06-25 15:23] VITALS: BP 153/73; PULSE 104
[2021-06-25] MEDS ORDERED: GI Cocktail Oral Solution 30 ML PO ONE (15:33)
[2021-06-25] MEDS ORDERED: Ondansetron 4 MG/2 ML SDV IVPUSH ONE (15:52)
[2021-06-25] MEDS ORDERED: Ondansetron 4 MG Tab.DIS PO ONE (15:57)
== END 2021-06-25 16:01 | disposition home or self-care (01) ==
LOC: DL.ED 15:16
DX: K30 Functional dyspepsia (principal); I10 Essential (primary) hypertension; E11.9 Type 2 diabetes mellitus without complications; Z79.82 Long term (current) use of aspirin; Z79.84 Long term (current) use of oral hypoglycemic drugs; Z79.899 Other long term (current) drug therapy
CPT/HCPCS: 82947; 99282; 99284; A9270-GY

== ENCOUNTER 2021-07-05 13:10 | Emergency (ER) | payer MEDICARE, MEDICAID ==
[2021-07-05 13:33] VITALS: BP 135/51; PULSE 101
[2021-07-05] MEDS ORDERED: Ketorolac 30 MG/ML SDV IVPUSH ONE (14:10)
[2021-07-05] MEDS ORDERED: Ondansetron 4 MG/2 ML SDV IVPUSH ONE (14:11)
[2021-07-05] MEDS ORDERED: Sodium Chloride 0.9% 10 ML Syringe FLUSH PRN (14:12)
[2021-07-05 15:03] LABS: ANION GAP 15.6 mEq/L (7-13); CHLORIDE,CL 102 mmol/L (98-107); SODIUM,NA 143 mmol/L (136-145)
== END 2021-07-05 15:43 | disposition home or self-care (01) ==
LOC: DL.ED 13:10
DX: K21.9 Gastro-esophageal reflux disease without esophagitis (principal); I10 Essential (primary) hypertension; E11.9 Type 2 diabetes mellitus without complications; Z79.84 Long term (current) use of oral hypoglycemic drugs; Z79.899 Other long term (current) drug therapy
CPT/HCPCS: 36415; 74018; 80053; 83605; 85025; 86140; 96374; 96375; 99284; 99284-25; J1885; J2405

== ENCOUNTER 2022-01-29 16:56 | Emergency (ER) | payer MEDICARE, MEDICAID ==
[2022-01-29] MEDS ORDERED: Ondansetron 4 MG Tab.DIS PO ONE (16:57)
[2022-01-29 17:05] VITALS: BP 134/86; PULSE 92
[2022-01-29] MEDS ORDERED: Ondansetron 4 MG/2 ML SDV IV ONE (17:10)
[2022-01-29] MEDS ORDERED: Sodium Chloride 0.9% 1,000 ML IV ONE (17:10)
[2022-01-29 17:53] LABS: ANION GAP 15.6 mEq/L (7-13)
[2022-01-29] MEDS ORDERED: Ondansetron 4 MG Tab.DIS ONE (18:52)
== END 2022-01-29 19:04 | disposition home or self-care (01) ==
LOC: DL.ED 16:56
DX: R11.2 Nausea with vomiting, unspecified (principal); I10 Essential (primary) hypertension; E11.9 Type 2 diabetes mellitus without complications; Z79.82 Long term (current) use of aspirin; Z79.899 Other long term (current) drug therapy; Z79.84 Long term (current) use of oral hypoglycemic drugs; Z90.49 Acquired absence of other specified parts of digestive tract
CPT/HCPCS: 36415; 80053; 82150; 83605; 83690; 85025; 96361; 96374; 99284; J2405; J7030

== ENCOUNTER 2022-02-25 01:40 | Emergency (ER) | payer MEDICARE, MEDICAID ==
[2022-02-25] MEDS ORDERED: Ondansetron 4 MG Tab.DIS PO ONE (01:41)
[2022-02-25] MEDS ORDERED: Sodium Chloride 0.9% 1,000 ML IV ONE (01:46)
[2022-02-25] MEDS ORDERED: Sodium Chloride 0.9% 10 ML Syringe FLUSH PRN (01:46)
[2022-02-25] MEDS ORDERED: Ondansetron 4 MG/2 ML SDV IVPUSH ONE (01:46)
[2022-02-25 01:48] VITALS: BP 136/70; PULSE 110
[2022-02-25 02:30] LABS: ANION GAP 15.2 mEq/L (7-13)
[2022-02-25] MEDS ORDERED: Ondansetron 4 MG Tab.DIS ONE (03:02)
== END 2022-02-25 03:36 | disposition home or self-care (01) ==
LOC: DL.ED 01:40
DX: R11.2 Nausea with vomiting, unspecified (principal); E11.9 Type 2 diabetes mellitus without complications; I10 Essential (primary) hypertension; Z79.82 Long term (current) use of aspirin; Z79.84 Long term (current) use of oral hypoglycemic drugs
CPT/HCPCS: 36415; 80053; 84484; 85025; 96361; 96374; 99284; A9270; J2405; J3490; J7030

== ENCOUNTER 2022-03-08 15:22 | Emergency (ER) | payer MEDICARE, MEDICAID ==
[2022-03-08 15:31] VITALS: BP 129/69; PULSE 85
[2022-03-08] MEDS: Sodium Chloride 0.9% 10 ML Syringe FLUSH PRN (15:52)
[2022-03-08 16:21] LABS: ANION GAP 11.9 mEq/L (7-13)
[2022-03-08 16:21] LABS: CORONAVIRUS COVID-19 NAA NEGATIVE (NEGATIVE); RESPIRATORY SYNCYTIAL VIR NAA NEGATIVE (NEGATIVE)
[2022-03-08] MEDS: Famotidine 20 MG/2 ML SDV IVPUSH ONE (17:01)
== END 2022-03-08 17:15 | disposition home or self-care (01) ==
LOC: DL.ED 15:22
DX: R07.2 Precordial pain (principal); K22.4 Dyskinesia of esophagus; I10 Essential (primary) hypertension; E11.9 Type 2 diabetes mellitus without complications; Z79.82 Long term (current) use of aspirin; Z79.84 Long term (current) use of oral hypoglycemic drugs; Z79.899 Other long term (current) drug therapy; Z20.822 Contact with and (suspected) exposure to COVID-19
CPT/HCPCS: 0241U; 36415; 71045; 80053; 82150; 83880; 84484; 85025; 93005; 96374; 99285-25; J3490

== ENCOUNTER 2022-04-06 17:45 | Emergency (ER) | payer MEDICARE, MEDICAID ==
[2022-04-06] MEDS ORDERED: Ondansetron 4 MG Tab.DIS PO ONE (17:46)
[2022-04-06 18:19] VITALS: BP 137/79; PULSE 101
[2022-04-06] MEDS ORDERED: Sodium Chloride 0.9% 10 ML Syringe FLUSH PRN (18:25)
[2022-04-06] MEDS ORDERED: Ondansetron 4 MG/2 ML SDV IV ONE (18:29)
[2022-04-06] MEDS ORDERED: Famotidine 20 MG/2 ML SDV IVPUSH ONE (18:29)
[2022-04-06] MEDS ORDERED: Sodium Chloride 0.9% 1,000 ML IV ONE (18:29)
[2022-04-06 19:20] LABS: ANION GAP 15.1 mEq/L (7-13)
[2022-04-06] MEDS ORDERED: Ondansetron 4 MG Tab.DIS ONE (20:17)
== END 2022-04-06 20:23 | disposition home or self-care (01) ==
LOC: DL.ED 17:45
DX: A05.9 Bacterial foodborne intoxication, unspecified (principal); I10 Essential (primary) hypertension; E11.9 Type 2 diabetes mellitus without complications; Z79.84 Long term (current) use of oral hypoglycemic drugs; Z79.82 Long term (current) use of aspirin
CPT/HCPCS: 36415; 80053; 82150; 83690; 85025; 96361; 96374; 96375; 99283; 99284-25; A9270-GY; J2405; J3490; J7030

== ENCOUNTER 2022-04-07 20:53 | Emergency (ER) | payer MEDICARE, MEDICAID ==
[~2022-04-07 20:53] MED LIST: Sodium Chloride 0.9% 10 ML Syringe FLUSH PRN
[2022-04-07 20:54] VITALS: BP 141/68; PULSE 99
[2022-04-07] MEDS ORDERED: Ondansetron 4 MG/2 ML SDV IVPUSH ONE (20:54)
[2022-04-07 21:25] LABS: ANION GAP 17.1 mEq/L (7-13); CHLORIDE,CL 105 mmol/L (98-107); ESTIMATED GFR 84 mL/min (>=60); SODIUM,NA 146 mmol/L (136-145)
[2022-04-07] MEDS ORDERED: Potassium Chloride 10 MEQ Tab.ER PO ONE (21:30)
[2022-04-07 21:46] LABS: CORONAVIRUS COVID-19 NAA NEGATIVE (NEGATIVE); RESPIRATORY SYNCYTIAL VIR NAA NEGATIVE (NEGATIVE)
[2022-04-07] MEDS ORDERED: Iopamidol 612 MG/ML 100 ML Bottle IVPUSH ONE (21:48)
[2022-04-07] MEDS ORDERED: Metoclopramide 10 MG/2 ML SDV IVPUSH ONE (21:52)
[2022-04-07] MEDS ORDERED: Ketorolac 30 MG/ML SDV IVPUSH ONE (22:07)
[2022-04-07] MEDS ORDERED: Famotidine 20 MG/2 ML SDV IVPUSH ONE (22:11)
== END 2022-04-07 22:37 | disposition home or self-care (01) ==
LOC: DL.ED 20:53
DX: R11.2 Nausea with vomiting, unspecified (principal); I10 Essential (primary) hypertension; E11.9 Type 2 diabetes mellitus without complications; Z79.82 Long term (current) use of aspirin; Z79.84 Long term (current) use of oral hypoglycemic drugs; Z79.899 Other long term (current) drug therapy; Z20.822 Contact with and (suspected) exposure to COVID-19
CPT/HCPCS: 0241U; 36415; 80053; 82150; 83605; 83690; 83735; 84484; 85025; 86140; 93005; 93010; 96374; 96375; 99284; 99284-25; A9270-GY; J1885; J2405; J2765; J3490; Q9967

== ENCOUNTER 2022-05-08 07:36 | Day surgery (SDC) | payer MEDICARE, MEDICAID ==
[~2022-05-08 07:36] MED LIST changes: +Dextrose 5%-0.45% NaCl 1,000 ML IV SCH; +Sodium Chloride 0.9% 10 ML Syringe FLUSH SCH
[2022-05-08] MEDS ORDERED: Midazolam 1 MG/ML 2 ML SDV IV ONE ×3 (07:37→08:25)
[2022-05-08] MEDS ORDERED: fentaNYL 100 MCG/2 ML SDV IV ONE ×3 (07:37→08:24)
[2022-05-08] MEDS ORDERED: Midazolam 1 MG/ML 2 ML SDV ONE (08:18)
[2022-05-08] MEDS ORDERED: fentaNYL 100 MCG/2 ML SDV ONE (08:19)
[2022-05-08 10:16] VITALS: BP 137/59; PULSE 66
== END 2022-05-08 09:55 | disposition home or self-care (01) ==
LOC: DL.ENDO 07:36
PROVIDERS: ATTEND Internal Medicine Gastroenterology
DX: K29.50 Unspecified chronic gastritis without bleeding (principal); K31.89 Other diseases of stomach and duodenum; K25.9 Gastric ulcer, unspecified as acute or chronic, without hemorrhage or perforation; E11.9 Type 2 diabetes mellitus without complications; M85.80 Other specified disorders of bone density and structure, unspecified site; Z90.49 Acquired absence of other specified parts of digestive tract; Z79.899 Other long term (current) drug therapy
CPT/HCPCS: 87077; 88305; J2250; J3010; J7042

== ENCOUNTER 2022-05-24 06:29 | Day surgery (SDC) | payer MEDICARE, MEDICAID ==
[~2022-05-24 06:29] MED LIST changes: -Dextrose 5%-0.45% NaCl 1,000 ML IV SCH; -Sodium Chloride 0.9% 10 ML Syringe FLUSH SCH
[2022-05-24] MEDS: Dextrose 5%-0.45% NaCl 1,000 ML IV SCH (07:00)
[2022-05-24] MEDS: fentaNYL 100 MCG/2 ML SDV IV ONE ×3 (07:11→07:40)
[2022-05-24] MEDS: Midazolam 1 MG/ML 2 ML SDV IV ONE ×6 (07:12→07:29)
[2022-05-24] MEDS ORDERED: fentaNYL 100 MCG/2 ML SDV ONE (07:58)
[2022-05-24] MEDS ORDERED: Midazolam 1 MG/ML 2 ML SDV ONE (07:58)
[2022-05-24] MEDS ORDERED: Sodium Chloride 0.9% 10 ML Syringe FLUSH SCH (09:00)
[2022-05-24 10:17] VITALS: BP 103/74; PULSE 73
== END 2022-05-24 09:35 | disposition home or self-care (01) ==
LOC: DL.ENDO 06:29
PROVIDERS: ATTEND Internal Medicine Gastroenterology
DX: Z12.11 Encounter for screening for malignant neoplasm of colon (principal); K64.4 Residual hemorrhoidal skin tags; K57.30 Diverticulosis of large intestine without perforation or abscess without bleeding; E11.9 Type 2 diabetes mellitus without complications; Z90.49 Acquired absence of other specified parts of digestive tract; Z79.84 Long term (current) use of oral hypoglycemic drugs
CPT/HCPCS: J2250; J3010; J7042

== ENCOUNTER 2023-01-30 05:54 | Emergency (ER) | payer MEDICARE, MEDICAID ==
[2023-01-30] MEDS ORDERED: Sodium Chloride 0.9% 10 ML Syringe FLUSH PRN (06:11)
[2023-01-30] MEDS ORDERED: Sodium Chloride 0.9% 500 ML IV ONE (06:12)
[2023-01-30 06:19] LABS: BASOPHILS PERCENT AUTO 0.3 % (0.0-1.0); EOSINOPHILS PERCENT AUTO 5.5 % (1.0-3.0); HEMATOCRIT 38.5 % (37.0-47.0); HEMOGLOBIN 12.3 g/dL (12.0-16.0); LYMPHOCYTES PERCENT AUTO 19.5 % (20.5-50.1); MEAN CORPUSCULAR HEMOGLOBIN 29.9 pg (27.0-34.0); MEAN CORPUSCULAR HGB CONC 31.9 g/dL (33.0-35.0); MEAN CORPUSCULAR VOLUME 93.4 fL (80-100); MONOCYTES PERCENT AUTO 6.8 % (2-8); NEUTROPHILS PERCENT AUTO 67.9 % (42.2-75.2); PLATELET COUNT,PLT 208 10^3/uL (150-450); RED BLOOD CELL COUNT 4.12 10^6/uL (4.2-5.4)
[2023-01-30 06:28] LABS: ALANINE AMINOTRANSFERASE,ALT 16 U/L (14-59); ALBUMIN 3.3 g/dL (3.4-5.0); ALKALINE PHOSPHATASE 86 U/L (46-116); ANION GAP 11.9 mEq/L (7-13); ASPARTATE AMNIOTRANSFERASE,AST 11 U/L (15-37); BILIRUBIN TOTAL 0.5 mg/dL (0.2-1.0); BLOOD UREA NITROGEN,BUN 12 mg/dL (7-18); BUN/CREATININE RATIO 17.1 (No establ ref range); CALCIUM 8.1 mg/dL (8.5-10.1); CARBON DIOXIDE,CO2 24 mmol/L (21-32); CHLORIDE,CL 106 mmol/L (98-107); EST CRCL DRUG DOSING (CG) 60.89 mL/min; GLUCOSE RANDOM 263 mg/dL (70-99); POTASSIUM,K 3.9 mmol/L (3.5-5.1); PROTEIN TOTAL,TP 7.3 g/dL (6.4-8.2); SODIUM,NA 138 mmol/L (136-145)
[2023-01-30 06:38] LABS: A/G RATIO 0.83; ESTIMATED GFR 91 mL/min (>=60); ETHANOL BLOOD MEDICAL < 3 mg/dL (0)
[2023-01-30 07:02] VITALS: BP 137/73; PULSE 73
[2023-01-30 07:18] LABS: APPEARANCE,URINE CLEAR (CLEAR); BILIRUBIN,URINE NEGATIVE (NEGATIVE); COLOR,URINE YELLOW (YELLOW); GLUCOSE,URINE 250 (NEGATIVE); KETONES,URINE NEGATIVE (NEGATIVE); LEUKOCYTE ESTERASE,URINE SMALL (NEGATIVE); NITRITE,URINE NEGATIVE (NEGATIVE); OCCULT BLOOD,URINE NEGATIVE (NEGATIVE); PROTEIN,URINE NEGATIVE (NEGATIVE); UROBILINOGEN,URINE 0.2 mg/dL (0.2-1.0)
[2023-01-30 07:22] LABS: AMPHETAMINES,URINE NEGATIVE (NEGATIVE); BARBITURATES,URINE NEGATIVE (NEGATIVE); BENZODIAZEPINE,URINE NEGATIVE (NEGATIVE); MDMA (ECSTASY), URINE NEGATIVE (NEGATIVE); METHADONE,URINE NEGATIVE (NEGATIVE); METHAMPHETAMINES,URINE NEGATIVE (NEGATIVE); OPIATES,URINE NEGATIVE (NEGATIVE); OXYCODONE,URINE NEGATIVE (NEGATIVE); PHENCYCLIDINE,URINE NEGATIVE (NEGATIVE); TCA,URINE NEGATIVE (NEGATIVE)
[2023-01-30 07:35] LABS: EPITHELIAL CELLS,URINE RARE /HPF (NOT SEEN); RBC,URINE NOT SEEN /HPF (0-5); WBC,URINE 0-5 /HPF (0-5/HPF)
[2023-01-30 07:36] LABS: BACTERIA,URINE FEW /HPF (0-FEW/HPF); MUCUS,URINE NOT SEEN /LPF (NOT SEEN)
== END 2023-01-30 07:44 | disposition home or self-care (01) ==
LOC: DL.ED 05:54
DX: R42 Dizziness and giddiness (principal); I10 Essential (primary) hypertension; E78.00 Pure hypercholesterolemia, unspecified; E11.9 Type 2 diabetes mellitus without complications; Z86.16 Personal history of COVID-19; Z90.49 Acquired absence of other specified parts of digestive tract; Z79.82 Long term (current) use of aspirin; Z79.84 Long term (current) use of oral hypoglycemic drugs; Z79.899 Other long term (current) drug therapy
CPT/HCPCS: 36415; 80053; 80305-QW; 80307; 81001; 82947; 85025; 87086; 87088; 87186; 96360; 99283; 99284-25; J3490; J7030

== ENCOUNTER 2023-08-20 06:04 | Emergency (ER) | payer MEDICARE, MEDICAID ==
[2023-08-20] MEDS: Sodium Chloride 0.9% 10 ML Syringe FLUSH PRN (06:08)
[2023-08-20 06:19] VITALS: BP 149/125; PULSE 87
[2023-08-20 06:20] LABS: BASOPHILS PERCENT AUTO 0.7 % (0.0-1.0); EOSINOPHILS PERCENT AUTO 6.5 % (1.0-3.0); HEMATOCRIT 38.7 % (37.0-47.0); HEMOGLOBIN 12.6 g/dL (12.0-16.0); LYMPHOCYTES PERCENT AUTO 24.4 % (20.5-50.1); MEAN CORPUSCULAR HEMOGLOBIN 30.2 pg (27.0-34.0); MEAN CORPUSCULAR HGB CONC 32.6 g/dL (33.0-35.0); MEAN CORPUSCULAR VOLUME 92.8 fL (80-100); MONOCYTES PERCENT AUTO 8.8 % (2-8); NEUTROPHILS PERCENT AUTO 59.6 % (42.2-75.2); PLATELET COUNT,PLT 201 10^3/uL (150-450); RED BLOOD CELL COUNT 4.17 10^6/uL (4.2-5.4); WHITE BLOOD CELL COUNT,WBC 6.2 10^3/uL (5.0-10.0)
[2023-08-20 06:22] LABS: INR 0.9 (0.9-1.2); PROTHROMBIN TIME 9.3 SEC (9.0-12.0)
[2023-08-20 06:31] LABS: ALBUMIN 3.3 g/dL (3.4-5.0); ANION GAP 14.7 mEq/L (7-13); BILIRUBIN TOTAL 0.4 mg/dL (0.2-1.0); BUN/CREATININE RATIO 22.4 (No establ ref range); CREATININE 0.76 mg/dL (0.55-1.02); EST CRCL DRUG DOSING (CG) 55.23 mL/min; POTASSIUM,K 3.7 mmol/L (3.5-5.1); PROTEIN TOTAL,TP 7.1 g/dL (6.4-8.2)
[2023-08-20 06:35] LABS: A/G RATIO 0.87
== END 2023-08-20 09:54 | disposition home or self-care (01) ==
LOC: DL.ED 06:04
DX: R07.9 Chest pain, unspecified (principal); I10 Essential (primary) hypertension; E78.00 Pure hypercholesterolemia, unspecified; E11.9 Type 2 diabetes mellitus without complications; M19.90 Unspecified osteoarthritis, unspecified site; Z86.16 Personal history of COVID-19; Z90.49 Acquired absence of other specified parts of digestive tract; Z79.84 Long term (current) use of oral hypoglycemic drugs; Z79.899 Other long term (current) drug therapy; Z79.82 Long term (current) use of aspirin
CPT/HCPCS: 36415; 71045; 80053; 84484; 85025; 85610; 93005; 99285; J3490

== ENCOUNTER 2023-11-30 22:44 | Emergency (ER) | payer MEDICARE, MEDICAID ==
[2023-11-30 23:28] VITALS: BP 149/81; PULSE 97
[2023-11-30] MEDS: Acetaminophen 325 MG Tab PO ONE (23:40)
[2023-11-30 23:42] LABS: BASOPHILS PERCENT AUTO 0.2 % (0.0-1.0); HEMATOCRIT 39.2 % (37.0-47.0); HEMOGLOBIN 12.7 g/dL (12.0-16.0); LYMPHOCYTES PERCENT AUTO 20.9 % (20.5-50.1); MEAN CORPUSCULAR HEMOGLOBIN 30.2 pg (27.0-34.0); MEAN CORPUSCULAR HGB CONC 32.4 g/dL (33.0-35.0); MEAN CORPUSCULAR VOLUME 93.3 fL (80-100); NEUTROPHILS PERCENT AUTO 66.9 % (42.2-75.2); PLATELET COUNT,PLT 224 10^3/uL (150-450); WHITE BLOOD CELL COUNT,WBC 8.4 10^3/uL (5.0-10.0)
[2023-12-01 00:03] LABS: A/G RATIO 0.8; ALANINE AMINOTRANSFERASE,ALT 19 U/L (14-59); ALBUMIN 3.7 g/dL (3.4-5.0); ALKALINE PHOSPHATASE 112 U/L (46-116); ANION GAP 12.1 mEq/L (7-13); ASPARTATE AMNIOTRANSFERASE,AST 13 U/L (15-37); BILIRUBIN TOTAL 0.6 mg/dL (0.2-1.0); BLOOD UREA NITROGEN,BUN 20 mg/dL (7-18); BUN/CREATININE RATIO 26.3 (No establ ref range); CALCIUM 9.6 mg/dL (8.5-10.1); CARBON DIOXIDE,CO2 28 mmol/L (21-32); CHLORIDE,CL 105 mmol/L (98-107); CREATININE 0.76 mg/dL (0.55-1.02); ESTIMATED GFR 82 mL/min (>=60); GLUCOSE RANDOM 217 mg/dL (70-99); LIPASE 46 U/L (16-77); POTASSIUM,K 4.1 mmol/L (3.5-5.1); PROTEIN TOTAL,TP 8.1 g/dL (6.4-8.2); SODIUM,NA 141 mmol/L (136-145)
[2023-12-01 00:51] LABS: APPEARANCE,URINE CLEAR (CLEAR); BILIRUBIN,URINE NEGATIVE (NEGATIVE); COLOR,URINE YELLOW (YELLOW); GLUCOSE,URINE 100 (NEGATIVE); KETONES,URINE NEGATIVE (NEGATIVE); LEUKOCYTE ESTERASE,URINE NEGATIVE (NEGATIVE); NITRITE,URINE NEGATIVE (NEGATIVE); OCCULT BLOOD,URINE NEGATIVE (NEGATIVE); PH,URINE 5.5 (5.0-9.0); PROTEIN,URINE NEGATIVE (NEGATIVE); UROBILINOGEN,URINE 0.2 mg/dL (0.2-1.0)
== END 2023-12-01 02:25 | disposition home or self-care (01) ==
LOC: DL.ED 22:44
DX: S32.019A Unspecified fracture of first lumbar vertebra, initial encounter for closed fracture (principal); S32.029A Unspecified fracture of second lumbar vertebra, initial encounter for closed fracture; K43.9 Ventral hernia without obstruction or gangrene; I10 Essential (primary) hypertension; E78.00 Pure hypercholesterolemia, unspecified; E11.9 Type 2 diabetes mellitus without complications; Z86.16 Personal history of COVID-19; Z79.82 Long term (current) use of aspirin; Z79.899 Other long term (current) drug therapy; X58.XXXA Exposure to other specified factors, initial encounter
CPT/HCPCS: 36415; 74176; 80053; 81003; 83690; 85025; 99284; A9270-GY

== ENCOUNTER 2024-02-13 11:08 | Emergency (ER) | payer MEDICARE, MEDICAID ==
[2024-02-13 11:18] VITALS: BP 153/84; PULSE 92
[2024-02-13] MEDS: LORazepam 0.5 MG Tab PO ONE (11:43)
== END 2024-02-13 11:58 | disposition home or self-care (01) ==
LOC: DL.ED 11:08
DX: R42 Dizziness and giddiness (principal); I10 Essential (primary) hypertension; E78.00 Pure hypercholesterolemia, unspecified; M19.90 Unspecified osteoarthritis, unspecified site; E11.9 Type 2 diabetes mellitus without complications; Z90.49 Acquired absence of other specified parts of digestive tract; Z79.82 Long term (current) use of aspirin; Z79.84 Long term (current) use of oral hypoglycemic drugs; Z79.899 Other long term (current) drug therapy
CPT/HCPCS: 82947; 93005; 99284; A9270

== ENCOUNTER 2024-03-02 11:19 | Emergency (ER) | payer MEDICARE, MEDICAID | END 2024-03-02 12:20 | LOC: DL.ED 11:19 | DX: Z53.21 Procedure and treatment not carried out due to patient leaving prior to being seen by health care provider (principal) ==

== ENCOUNTER 2024-03-05 04:55 | Emergency (ER) | payer MEDICARE, MEDICAID ==
[2024-03-05] MEDS: Acetaminophen 325 MG Tab PO ONE (05:11)
[2024-03-05] MEDS: Sodium Chloride 0.9% 1,000 ML IV ONE (05:13)
[2024-03-05 05:22] LABS: BASOPHILS PERCENT AUTO 0.6 % (0.0-1.0); EOSINOPHILS PERCENT AUTO 4.9 % (1.0-3.0); HEMATOCRIT 40.9 % (37.0-47.0); HEMOGLOBIN 13.2 g/dL (12.0-16.0); LYMPHOCYTES PERCENT AUTO 20.5 % (20.5-50.1); MEAN CORPUSCULAR HEMOGLOBIN 29.1 pg (27.0-34.0); MEAN CORPUSCULAR HGB CONC 32.3 g/dL (33.0-35.0); MEAN CORPUSCULAR VOLUME 90.3 fL (80-100); MONOCYTES PERCENT AUTO 6.7 % (2-8); NEUTROPHILS PERCENT AUTO 67.3 % (42.2-75.2); PLATELET COUNT,PLT 227 10^3/uL (150-450); RED BLOOD CELL COUNT 4.53 10^6/uL (4.2-5.4); WHITE BLOOD CELL COUNT,WBC 7.1 10^3/uL (5.0-10.0)
[2024-03-05 05:44] LABS: A/G RATIO 0.8; ALBUMIN 3.6 g/dL (3.4-5.0); ANION GAP 13.1 mEq/L (7-13); BILIRUBIN TOTAL 0.5 mg/dL (0.2-1.0); BUN/CREATININE RATIO 27.6 (No establ ref range); CALCIUM 9.3 mg/dL (8.5-10.1); CREATININE 0.76 mg/dL (0.55-1.02); EST CRCL DRUG DOSING (CG) 55.23 mL/min; MAGNESIUM 1.8 mg/dL (1.8-2.4); POTASSIUM,K 4.1 mmol/L (3.5-5.1); PROTEIN TOTAL,TP 8.1 g/dL (6.4-8.2)
[2024-03-05 06:35] VITALS: BP 135/65; PULSE 88
== END 2024-03-05 07:23 | disposition home or self-care (01) ==
LOC: DL.ED 04:55
DX: E86.0 Dehydration (principal); I10 Essential (primary) hypertension; M19.90 Unspecified osteoarthritis, unspecified site; E78.00 Pure hypercholesterolemia, unspecified; E11.9 Type 2 diabetes mellitus without complications; Z79.82 Long term (current) use of aspirin; Z79.84 Long term (current) use of oral hypoglycemic drugs; Z79.899 Other long term (current) drug therapy; Z90.49 Acquired absence of other specified parts of digestive tract
CPT/HCPCS: 36415; 70450; 80053; 83735; 84484; 85025; 93005; 93010; 96360; 99284; A9270; J7030

== ENCOUNTER 2024-03-11 17:14 | Emergency (ER) | payer MEDICARE, MEDICAID ==
[2024-03-11] MEDS ORDERED: Silver Nitrate Applicator Each ONE (17:36)
[2024-03-11] MEDS: Silver Nitrate Applicator Each TOP ONE (17:49)
== END 2024-03-11 18:12 | disposition home or self-care (01) ==
LOC: DL.ED 17:14
DX: R04.0 Epistaxis (principal); I10 Essential (primary) hypertension; E78.00 Pure hypercholesterolemia, unspecified; E11.9 Type 2 diabetes mellitus without complications; Z90.49 Acquired absence of other specified parts of digestive tract; Z88.6 Allergy status to analgesic agent; Z79.84 Long term (current) use of oral hypoglycemic drugs; Z88.8 Allergy status to other drugs, medicaments and biological substances
CPT/HCPCS: 30901; 99283; 99284-25

== ENCOUNTER 2024-05-14 15:00 | Emergency (ER) | payer MEDICARE, MEDICAID ==
[2024-05-14 15:14] VITALS: BP 155/76; PULSE 94
[2024-05-14 15:33] LABS: BASOPHILS PERCENT AUTO 0.5 % (0.0-1.0); EOSINOPHILS PERCENT AUTO 4.7 % (1.0-3.0); HEMATOCRIT 38.5 % (37.0-47.0); HEMOGLOBIN 12.1 g/dL (12.0-16.0); LYMPHOCYTES PERCENT AUTO 22.1 % (20.5-50.1); MEAN CORPUSCULAR HEMOGLOBIN 28.8 pg (27.0-34.0); MEAN CORPUSCULAR HGB CONC 31.4 g/dL (33.0-35.0); MEAN CORPUSCULAR VOLUME 91.7 fL (80-100); MONOCYTES PERCENT AUTO 12.8 % (2-8); NEUTROPHILS PERCENT AUTO 59.9 % (42.2-75.2); PLATELET COUNT,PLT 189 10^3/uL (150-450); WHITE BLOOD CELL COUNT,WBC 4.4 10^3/uL (5.0-10.0)
[2024-05-14 15:57] LABS: A/G RATIO 0.9; ALANINE AMINOTRANSFERASE,ALT 22 U/L (14-59); ALBUMIN 3.6 g/dL (3.4-5.0); ALKALINE PHOSPHATASE 99 U/L (46-116); ANION GAP 14.2 mEq/L (7-13); ASPARTATE AMNIOTRANSFERASE,AST 16 U/L (15-37); BILIRUBIN TOTAL 0.5 mg/dL (0.2-1.0); BLOOD UREA NITROGEN,BUN 15 mg/dL (7-18); BUN/CREATININE RATIO 16.3 (No establ ref range); CARBON DIOXIDE,CO2 27 mmol/L (21-32); CHLORIDE,CL 106 mmol/L (98-107); CREATININE 0.92 mg/dL (0.55-1.02); EST CRCL DRUG DOSING (CG) 44.92 mL/min; GLUCOSE RANDOM 259 mg/dL (70-99); INR 0.9 (0.9-1.2); POTASSIUM,K 4.2 mmol/L (3.5-5.1); PROTEIN TOTAL,TP 7.7 g/dL (6.4-8.2); PROTHROMBIN TIME 9.6 SEC (9.0-12.0); SODIUM,NA 143 mmol/L (136-145)
[2024-05-14 15:58] LABS: ESTIMATED GFR 65 mL/min (>=60)
== END 2024-05-14 16:30 | disposition home or self-care (01) ==
LOC: DL.ED 15:00
DX: J06.9 Acute upper respiratory infection, unspecified (principal); I10 Essential (primary) hypertension; E11.9 Type 2 diabetes mellitus without complications; M19.90 Unspecified osteoarthritis, unspecified site; Z79.82 Long term (current) use of aspirin; Z79.899 Other long term (current) drug therapy; Z79.84 Long term (current) use of oral hypoglycemic drugs; Z90.49 Acquired absence of other specified parts of digestive tract
CPT/HCPCS: 71046; 80053; 84484; 85025; 85610; 87428-QW; 93005; 93010; 99283; 99285

== ENCOUNTER 2024-10-30 21:12 | Emergency (ER) | payer MEDICARE, MEDICAID ==
[2024-10-30] MEDS: GI Cocktail Oral Solution 30 ML PO ONE (21:17)
[2024-10-30 21:27] LABS: BASOPHILS PERCENT AUTO 0.7 % (0.0-1.0); EOSINOPHILS PERCENT AUTO 4.4 % (1.0-3.0); LYMPHOCYTES PERCENT AUTO 22.8 % (20.5-50.1); MONOCYTES PERCENT AUTO 8.9 % (2-8); NEUTROPHILS PERCENT AUTO 63.2 % (42.2-75.2); PLATELET COUNT,PLT 205 10^3/uL (150-450); RED BLOOD CELL COUNT 4.41 10^6/uL (4.2-5.4); WHITE BLOOD CELL COUNT,WBC 6.1 10^3/uL (5.0-10.0)
[2024-10-30 21:47] LABS: A/G RATIO 0.9; ALANINE AMINOTRANSFERASE,ALT 23.0 U/L (14-59); ASPARTATE AMNIOTRANSFERASE,AST 15.0 U/L (15-37); BILIRUBIN TOTAL 0.6 mg/dL (0.2-1.0); BLOOD UREA NITROGEN,BUN 14.0 mg/dL (7-18); CARBON DIOXIDE,CO2 29.0 mmol/L (21-32); CHLORIDE,CL 110.0 mmol/L (98-107); CREATININE 0.64 mg/dL (0.55-1.02); EST CRCL DRUG DOSING (CG) 64.58 mL/min; GLUCOSE RANDOM 203.0 mg/dL (70-99); POTASSIUM,K 3.7 mmol/L (3.5-5.1); PROTEIN TOTAL,TP 8.0 g/dL (6.4-8.2); SODIUM,NA 148.0 mmol/L (136-145)
[2024-10-30 21:48] LABS: ESTIMATED GFR 92.0 mL/min (>=60)
[2024-10-30] MEDS: Ondansetron 4 MG Tab.DIS PO ONE (22:08)
[2024-10-30 22:36] VITALS: BP 170/78; PULSE 106
== END 2024-10-30 22:33 | disposition home or self-care (01) ==
LOC: DL.ED 21:12
DX: R10.13 Epigastric pain (principal); R10.32 Left lower quadrant pain; I10 Essential (primary) hypertension; E78.00 Pure hypercholesterolemia, unspecified; M19.90 Unspecified osteoarthritis, unspecified site; Z79.899 Other long term (current) drug therapy; Z79.82 Long term (current) use of aspirin; Z90.49 Acquired absence of other specified parts of digestive tract
CPT/HCPCS: 36415; 80053; 83690; 84484; 85025; 99284; A9270

== ENCOUNTER 2024-12-02 22:27 | Emergency (ER) | payer MEDICARE, MEDICAID ==
[2024-12-02 21:02] LABS: BASOPHILS PERCENT AUTO 0.3 % (0.0-1.0); EOSINOPHILS PERCENT AUTO 2.4 % (1.0-3.0); LYMPHOCYTES PERCENT AUTO 17.6 % (20.5-50.1); MONOCYTES PERCENT AUTO 6.6 % (2-8); NEUTROPHILS PERCENT AUTO 73.1 % (42.2-75.2); PLATELET COUNT,PLT 215 10^3/uL (150-450); RED BLOOD CELL COUNT 4.62 10^6/uL (4.2-5.4); WHITE BLOOD CELL COUNT,WBC 10.2 10^3/uL (5.0-10.0)
[2024-12-02] MEDS: Ondansetron 4 MG Tab.DIS PO ONE (21:07)
[2024-12-02 21:22] LABS: A/G RATIO 0.8; ALANINE AMINOTRANSFERASE,ALT 20.0 U/L (14-59); ASPARTATE AMNIOTRANSFERASE,AST 13.0 U/L (15-37); BILIRUBIN TOTAL 0.7 mg/dL (0.2-1.0); BLOOD UREA NITROGEN,BUN 20.0 mg/dL (7-18); CARBON DIOXIDE,CO2 32.0 mmol/L (21-32); CHLORIDE,CL 104.0 mmol/L (98-107); CREATININE 0.72 mg/dL (0.55-1.02); EST CRCL DRUG DOSING (CG) 57.4 mL/min; GLUCOSE RANDOM 212.0 mg/dL (70-99); POTASSIUM,K 4.0 mmol/L (3.5-5.1); PROTEIN TOTAL,TP 8.5 g/dL (6.4-8.2); SODIUM,NA 146.0 mmol/L (136-145)
[2024-12-02 21:23] LABS: ESTIMATED GFR 87.0 mL/min (>=60)
[2024-12-02 22:04] VITALS: BP 132/61
[2024-12-02 22:14] VITALS: PULSE 106
== END 2024-12-02 22:38 | disposition home or self-care (01) ==
LOC: DL.ED 22:27
DX: K52.9 Noninfective gastroenteritis and colitis, unspecified (principal); K43.9 Ventral hernia without obstruction or gangrene; I10 Essential (primary) hypertension; E11.9 Type 2 diabetes mellitus without complications; E78.00 Pure hypercholesterolemia, unspecified; Z90.49 Acquired absence of other specified parts of digestive tract; Z79.84 Long term (current) use of oral hypoglycemic drugs; Z79.899 Other long term (current) drug therapy; Z79.82 Long term (current) use of aspirin
CPT/HCPCS: 36415; 74019; 80053; 83735; 85025; 99284; A9270

== ENCOUNTER 2024-12-03 01:52 | Emergency (ER) | payer MEDICARE, MEDICAID ==
[2024-12-03] MEDS: Lactated Ringers 1,000 ML IV ONE (02:02)
[2024-12-03] MEDS: Iopamidol 612 MG/ML 100 ML Bottle IVPUSH ONE (02:21)
[2024-12-03 02:42] LABS: LACTIC ACID 2.9 mmol/L (0.4-2.0)
[2024-12-03 04:38] LABS: APPEARANCE,URINE CLEAR (CLEAR); GLUCOSE,URINE 100 (NEGATIVE); OCCULT BLOOD,URINE NEGATIVE (NEGATIVE)
[2024-12-03 04:54] LABS: EPITHELIAL CELLS,URINE RARE /HPF (NOT SEEN)
[2024-12-03] MEDS: Lactated Ringers 1,000 ML IV SCH (05:21)
[2024-12-03] MEDS: Benzocaine 20% Topical Spray UD MUCMEM ONE (05:22)
[2024-12-03] MEDS: Diatrizoate Meglumine/Diatrizoate Sodium 37% 120 ML Bottle PO ONE (05:22)
[2024-12-03 11:07] VITALS: BP 148/71; PULSE 107
== END 2024-12-03 13:50 ==
LOC: DL.ED 01:52
DX: K52.9 Noninfective gastroenteritis and colitis, unspecified (principal); K29.50 Unspecified chronic gastritis without bleeding; I10 Essential (primary) hypertension; E78.00 Pure hypercholesterolemia, unspecified; E11.9 Type 2 diabetes mellitus without complications; Z90.49 Acquired absence of other specified parts of digestive tract; Z79.82 Long term (current) use of aspirin; Z79.84 Long term (current) use of oral hypoglycemic drugs; Z79.899 Other long term (current) drug therapy
CPT/HCPCS: 36415; 43752; 74018; 74177; 81001; 83605; 96361; 96374; 99284; 99285; J2405; J7120; Q9967

== ENCOUNTER 2024-12-08 23:00 | Emergency (ER) | payer MEDICARE, MEDICAID ==
[2024-12-08] MEDS ORDERED: Sodium Chloride 0.9% 10 ML Syringe FLUSH PRN (23:22)
[2024-12-08 23:39] LABS: BASOPHILS PERCENT AUTO 0.4 % (0.0-1.0); EOSINOPHILS PERCENT AUTO 1.7 % (1.0-3.0); LYMPHOCYTES PERCENT AUTO 15.7 % (20.5-50.1); MONOCYTES PERCENT AUTO 5.8 % (2-8); NEUTROPHILS PERCENT AUTO 76.4 % (42.2-75.2); PLATELET COUNT,PLT 238 10^3/uL (150-450); RED BLOOD CELL COUNT 4.47 10^6/uL (4.2-5.4); WHITE BLOOD CELL COUNT,WBC 11.1 10^3/uL (5.0-10.0)
[2024-12-08] MEDS: Ondansetron 4 MG/2 ML SDV IVPUSH ONE (23:40)
[2024-12-09] LABS: A/G RATIO 0.9; ALANINE AMINOTRANSFERASE,ALT 21.0 U/L (14-59); ASPARTATE AMNIOTRANSFERASE,AST 16.0 U/L (15-37); BILIRUBIN TOTAL 0.7 mg/dL (0.2-1.0); BLOOD UREA NITROGEN,BUN 21.0 mg/dL (7-18); CARBON DIOXIDE,CO2 27.0 mmol/L (21-32); CHLORIDE,CL 101.0 mmol/L (98-107); CREATININE 0.9 mg/dL (0.55-1.02); EST CRCL DRUG DOSING (CG) 45.92 mL/min; ESTIMATED GFR 66.0 mL/min (>=60); GLUCOSE RANDOM 224.0 mg/dL (70-99); POTASSIUM,K 3.5 mmol/L (3.5-5.1); PROTEIN TOTAL,TP 8.2 g/dL (6.4-8.2); SODIUM,NA 140.0 mmol/L (136-145)
[2024-12-09 00:03] LABS: LACTIC ACID 1.7 mmol/L (0.4-2.0)
[2024-12-09] MEDS: Lactated Ringers 1,000 ML IV ONE (01:23)
[2024-12-09 04:40] VITALS: PULSE 103
[2024-12-09 04:50] VITALS: BP 139/70
== END 2024-12-09 04:44 | disposition home or self-care (01) ==
LOC: DL.ED 23:00
DX: K52.9 Noninfective gastroenteritis and colitis, unspecified (principal); K29.70 Gastritis, unspecified, without bleeding; I10 Essential (primary) hypertension; E78.00 Pure hypercholesterolemia, unspecified; E11.9 Type 2 diabetes mellitus without complications; Z79.82 Long term (current) use of aspirin; Z79.899 Other long term (current) drug therapy
CPT/HCPCS: 36415; 80053; 83605; 83690; 83735; 85025; 96361; 96374; 99284; A9270; J2405; J7120

== ENCOUNTER 2025-01-04 14:23 | Emergency (ER) | payer MEDICARE, MEDICAID ==
[2025-01-04] MEDS: fentaNYL 100 MCG/2 ML SDV SUBCUT ONE (14:43)
[2025-01-04 16:26] VITALS: BP 146/86; PULSE 92
== END 2025-01-04 16:49 | disposition home or self-care (01) ==
LOC: DL.ED 14:23
DX: S80.01XA Contusion of right knee, initial encounter (principal); S00.12XA Contusion of left eyelid and periocular area, initial encounter; E78.00 Pure hypercholesterolemia, unspecified; I10 Essential (primary) hypertension; K21.9 Gastro-esophageal reflux disease without esophagitis; E11.9 Type 2 diabetes mellitus without complications; Z90.49 Acquired absence of other specified parts of digestive tract; Z79.82 Long term (current) use of aspirin; Z79.899 Other long term (current) drug therapy; W18.39XA Other fall on same level, initial encounter; Y93.01 Activity, walking, marching and hiking
CPT/HCPCS: 73562; 96372; 99283; J3010

== ENCOUNTER 2025-01-15 14:21 | Emergency (ER) | payer MEDICARE, MEDICAID ==
[2025-01-15] MEDS ORDERED: Sodium Chloride 0.9% 10 ML Syringe FLUSH PRN (15:01)
[2025-01-15 15:43] LABS: A/G RATIO 0.8; ALANINE AMINOTRANSFERASE,ALT 16.0 U/L (14-59); ASPARTATE AMNIOTRANSFERASE,AST 13.0 U/L (15-37); BILIRUBIN TOTAL 0.6 mg/dL (0.2-1.0); BLOOD UREA NITROGEN,BUN 13.0 mg/dL (7-18); CARBON DIOXIDE,CO2 27.0 mmol/L (21-32); CHLORIDE,CL 107.0 mmol/L (98-107); CREATININE 0.9 mg/dL (0.55-1.02); EST CRCL DRUG DOSING (CG) 43.99 mL/min; GLUCOSE RANDOM 219.0 mg/dL (70-99); POTASSIUM,K 3.4 mmol/L (3.5-5.1); PROTEIN TOTAL,TP 8.0 g/dL (6.4-8.2); SODIUM,NA 143.0 mmol/L (136-145)
[2025-01-15 15:51] LABS: ESTIMATED GFR 66.0 mL/min (>=60)
[2025-01-15] MEDS: Iopamidol 612 MG/ML 100 ML Bottle IVPUSH ONE (15:55)
[2025-01-15 18:48] VITALS: BP 138/67; PULSE 83
== END 2025-01-15 18:45 | disposition home or self-care (01) ==
LOC: DL.ED 14:21
DX: S80.01XA Contusion of right knee, initial encounter (principal); M25.561 Pain in right knee; I10 Essential (primary) hypertension; E78.00 Pure hypercholesterolemia, unspecified; E11.9 Type 2 diabetes mellitus without complications; Z79.82 Long term (current) use of aspirin; Z79.84 Long term (current) use of oral hypoglycemic drugs; Z79.899 Other long term (current) drug therapy; Z90.49 Acquired absence of other specified parts of digestive tract; W19.XXXA Unspecified fall, initial encounter
CPT/HCPCS: 36415; 73701; 80053; 85379; 93971; 99284; A9270; Q9967